=== PATIENT | male | born 1960 | race Caucasian/White ===

== ENCOUNTER 2020-04-03 16:28 | Outpatient (CLI) | payer MEDICARE, OTHER, SELFPAY ==
[2020-04-03 17:21] LABS: Basophils Absolute Auto 0.1 K/mm3 (0.0-0.1); Basophils Percent Auto 0.7 % (0.2-1.2); Eosinophils Absolute Auto 0.1 K/mm3 (0-0.3); Eosinophils Percent Auto 1.1 % (0-4.4); Hemoglobin 15.8 g/dL (14.0-18.0); Immature Granulocyte Absolute 0.02 K/mm3 (0.00-0.031); Immature Granulocyte Percent A 0.3 % (0-0.5); Lymphocytes Absolute Auto 1.78 K/mm3 (0.9-3.2); Lymphocytes Percent Auto 24.1 % (18.3-44.2); Mean Corpuscular HGB Conc 33.6 g/dl (32-36); Mean Corpuscular Hemoglobin 29.3 pg (26-34); Mean Corpuscular Volume 87.2 fl (80-100); Mean Platelet Volume 10.2 fl (7.4-10.4); Monocytes Absolute Auto 0.6 K/mm3 (0.1-0.6); Monocytes Percent Auto 7.4 % (2.6-8.5); Neutrophils Absolute Auto 4.9 K/mm3 (1.3-6.7); Neutrophils Percent Auto 66.4 % (45.5-73.1); Platelet Count Result 258 k/mm3 (150-375); Red Blood Count 5.39 M/mm3 (4.6-6.20); White Blood Count 7.4 K/mm3 (4.5-10.0)
[2020-04-03 17:56] LABS: Hemoglobin A1C 7.2 % (<5.7)
[2020-04-07 04:50] LABS: Homocysteine 11.4 umol/L (<11.4)
[2020-04-07 13:23] LABS: Testosterone Total 126 ng/dL (250-1100)
[2020-04-09 01:40] LABS: Vitamin D 1,25 (OH)2 Total 29 pg/mL (18-72); Vitamin D2 1,25 (OH)2 16 pg/mL; Vitamin D3 1,25 (OH)2 13 pg/mL
== END 2020-04-03 16:29 | disposition home or self-care (01) ==
PROVIDERS: PCP Internal Medicine; Visit Provider Internal Medicine
DX: E55.9 Vitamin D deficiency, unspecified (principal); I10 Essential (primary) hypertension; E11.9 Type 2 diabetes mellitus without complications; E29.1 Testicular hypofunction; R79.89 Other specified abnormal findings of blood chemistry; M10.9 Gout, unspecified; Z79.899 Other long term (current) drug therapy
CPT/HCPCS: 36415; 82652; 83036; 83090; 84403; 85025

== ENCOUNTER 2020-09-05 16:48 | Outpatient (CLI) | payer MEDICARE, OTHER, SELFPAY ==
[2020-09-05 17:40] LABS: Basophils Absolute Auto 0.1 K/mm3 (0.0-0.1); Basophils Percent Auto 0.9 % (0.2-1.2); Eosinophils Absolute Auto 0.1 K/mm3 (0-0.3); Eosinophils Percent Auto 1.2 % (0-4.4); Hematocrit 48.4 % (42.0-52.0); Hemoglobin 16.1 g/dL (14.0-18.0); Immature Granulocyte Absolute 0.03 K/mm3 (0.00-0.031); Immature Granulocyte Percent A 0.3 % (0-0.5); Lymphocytes Absolute Auto 1.71 K/mm3 (0.9-3.2); Mean Corpuscular HGB Conc 33.3 g/dl (32-36); Mean Corpuscular Hemoglobin 28.6 pg (26-34); Mean Platelet Volume 10.5 fl (7.4-10.4); Monocytes Absolute Auto 0.6 K/mm3 (0.1-0.6); Neutrophils Absolute Auto 6.5 K/mm3 (1.3-6.7); Neutrophils Percent Auto 71.6 % (45.5-73.1); Platelet Count Result 259 k/mm3 (150-375); Red Blood Count 5.63 M/mm3 (4.6-6.20); Red Cell Distribution Width 14.7 % (11.5-14.5)
[2020-09-05 17:51] LABS: Alanine Aminotransferase 65 U/L (4-50); Albumin Level 4.5 g/dL (3.5-5.1); Alkaline Phosphatase 76 U/L (38-126); Anion Gap 9 mmol/L (8-16); Aspartate Amino Transferase 49 U/L (17-59); Blood Urea Nitrogen 14 mg/dL (9-20); Calcium 9.7 mg/dL (8.4-10.2); Carbon Dioxide 28 mmol/L (22-30); Chloride 103 mmol/L (98-107); Cholesterol 139 mg/dL (0-200); Estimated Glomerular Filt Rate > 60; Glucose 111 mg/dL (75-110); HDL Direct 35 mg/dL; Potassium 4.3 mmol/L (3.4-5.0); Sodium 140 mmol/L (137-145); Triglycerides 215 mg/dL (<150)
[2020-09-05 18:02] LABS: LDL Cholesterol Direct 58 mg/dL
[2020-09-05 18:08] LABS: Creatinine Urine 51.6 mg/dL
[2020-09-05 18:11] LABS: Hemoglobin A1C 5.7 % (<5.7)
[2020-09-05 18:13] LABS: MALB Creatinine Ratio 73.4 mg/g (0-30); Microalbumin Urine Random 37.9 mg/L (0-16.7)
[2020-09-11 10:44] LABS: Vitamin D 1,25 (OH)2 Total 15 pg/mL (18-72); Vitamin D2 1,25 (OH)2 <8 pg/mL; Vitamin D3 1,25 (OH)2 15 pg/mL
== END 2020-09-05 16:49 | disposition home or self-care (01) ==
LOC: ANHLAB 16:51
PROVIDERS: PCP Internal Medicine; Visit Provider Internal Medicine
DX: E11.9 Type 2 diabetes mellitus without complications (principal); I10 Essential (primary) hypertension; Z12.5 Encounter for screening for malignant neoplasm of prostate; E55.9 Vitamin D deficiency, unspecified; R79.89 Other specified abnormal findings of blood chemistry; E78.2 Mixed hyperlipidemia
CPT/HCPCS: 36415; 80053; 80061; 82043; 82652; 83036; 83090; 84153; 85025; G0103

== ENCOUNTER 2020-12-27 16:50 | Inpatient (IN) | payer MEDICARE, OTHER, SELFPAY ==
[2020-12-27] VITALS (20 sets, daily range): BP systolic 135–176; BP diastolic 72–114; PULSE 69–85; RESP 15–21; TEMP 36–36.1; O2SAT 95–99; BMI 36.4
--- NOTE | ~2020-12-27 | XR_ITS ---
EXAMINATION: XR chest 2V 12/27/2020 17:28 INDICATION: Midsternal left-sided chest pain. Shortness of breath. PROCEDURE: 2 view chest COMPARISON: 11/11/2017 FINDINGS: The lungs are clear. Mild elevation of the left diaphragm. The cardiomediastinal silhouette is within normal limits. There are no pleural effusions. There is no pneumothorax suspected. IMPRESSION: 1: NO ACUTE CARDIOPULMONARY DISEASE. Reviewed, dictated and finalized at location A. O EFFECTS EDITOR
--- NOTE | 2020-12-27 17:02 | ECG_ITS ---
Measurements Intervals [place] Rate: 74 P: 44 [place]: 196 QRS: -6 QRSD: 148 T: 137 QT: 420 QTc: 468 Interpretive Statements SINUS RHYTHM LEFT BUNDLE BRANCH BLOCK ABNORMAL ECG Electronically Signed On 12-27-2020 17:06:34 EXHAUST AND MUFFLER FITTER by Andreas Meyer D.O.
[2020-12-27 17:17] LABS: Basophils Absolute Auto 0.1 K/mm3 (0.0-0.1); Basophils Percent Auto 0.8 % (0.2-1.2); Eosinophils Absolute Auto 0.2 K/mm3 (0-0.3); Eosinophils Percent Auto 2.2 % (0-4.4); Hematocrit 46.9 % (42.0-52.0); Hemoglobin 15.5 g/dL (14.0-18.0); Immature Granulocyte Absolute 0.02 K/mm3 (0.00-0.031); Immature Granulocyte Percent A 0.3 % (0-0.5); Lymphocytes Absolute Auto 2.35 K/mm3 (0.9-3.2); Lymphocytes Percent Auto 30.2 % (18.3-44.2); Mean Corpuscular Hemoglobin 29.8 pg (26-34); Mean Platelet Volume 10.3 fl (7.4-10.4); Monocytes Absolute Auto 0.7 K/mm3 (0.1-0.6); Neutrophils Absolute Auto 4.5 K/mm3 (1.3-6.7); Neutrophils Percent Auto 57.5 % (45.5-73.1); Platelet Count Result 255 k/mm3 (150-375); Red Blood Count 5.21 M/mm3 (4.6-6.20); Red Cell Distribution Width 13.6 % (11.5-14.5); White Blood Count 7.8 K/mm3 (4.5-10.0)
[2020-12-27 17:26] LABS: Prothrombin Time 13.3 Seconds (11.1-14.7)
[2020-12-27 17:29] LABS: Anion Gap 5 mmol/L (8-16); Blood Urea Nitrogen 12 mg/dL (9-20); Calcium 8.7 mg/dL (8.4-10.2); Carbon Dioxide 31 mmol/L (22-30); Chloride 106 mmol/L (98-107); Estimated CRCL calculation 105 ml/min; Estimated Glomerular Filt Rate > 60; Glucose 90 mg/dL (75-110); Potassium 4.3 mmol/L (3.4-5.0); Sodium 142 mmol/L (137-145)
[2020-12-27] MEDS: ENOXAPARIN 120 MG/0.8 ML SYRINGE SUB-Q (17:31)
[2020-12-27 17:41] LABS: Troponin I < 0.012 ng/mL (0.000-0.034)
[2020-12-27] MEDS: NITROGLYCERIN OINTMENT 1 INCH DOSE TRANSDERM (18:47)
--- NOTE | 2020-12-27 18:55 | ED.CHESTPAIN ---
HPI - Chest Pain General Chief Complaint: Chest Pain Stated Complaint: chest pain Time Seen by Provider: 12/27/20 16:52 Source: patient Mode of arrival: ambulatory Limitations: no limitations History of Present Illness HPI narrative: 60-year-old male History of hypertension hypercholesterolemia and diabetes He was at cardiology office today as a new patient and mentioned that he had been having significant episodes of chest tightness the last 2 nights and in fact was having chest tightness while he was in the office with some radiation into his neck and jaw His EKG was done and showed a left bundle branch block which he was known to have previously along with reduced 45% ejection fraction Because of his active symptoms and high risk cohort he was referred to the ER for evaluation and admission with a plan that if his initial ER evaluation was okay he would be admitted and electively cathed soon complaint: chest heaviness Related Data Home Medications Medication Instructions Recorded Confirmed aspirin 81 mg tablet,delayed 81 mg PO DAILY 09/07/19 09/06/20 release cyanocobalamin (vitamin B-12) 1,000 mcg PO DAILY 09/07/19 09/06/20 1,000 mcg tablet cholecalciferol (vitamin D3) 25 1,000 unit PO DAILY 09/21/19 09/06/20 mcg (1,000 unit) capsule omega-3 fatty acids 1,000 mg 2,000 mg PO BID cap 09/09/20 capsule Allergies Allergy/AdvReac Type Severity Reaction Status Date / Time inositol Allergy Unknown Unknown Verified 12/27/20 17:33 niacin Allergy Unknown Unknown Verified 12/27/20 17:33 niacinamide Allergy Unknown Unknown Verified 12/27/20 17:33 Review of Systems Review of Systems: All systems reviewed & are unremarkable except as noted in HPI and below Constitutional: Constitutional: Denies chills, Denies fatigue, Denies fever(s), Denies headache(s) and Denies weakness Eyes: Eyes: Reports no additional eye complaints and Denies change in vision ENT: Denies headache(s), Denies epistaxis, Denies nasal congestion, Reports neck pain and Denies sore throat Cardiovascular: Cardiovascular: Reports chest pain, Reports chest pain at rest, Denies leg edema, Denies palpitations and Denies dyspnea Respiratory: Respiratory: Denies cough and Denies dyspnea Gastrointestinal: Gastrointestinal: Denies abdominal pain, Denies diarrhea, Denies nausea and Denies vomiting Genitourinary: Genitourinary: Denies hematuria, Denies dysuria and Denies urinary frequency Musculoskeletal: Musculoskeletal: Reports back pain (Chronic, status post several back operations), Denies deformity, Denies arthralgias, Denies joint swelling, Denies muscle weakness and Denies numbness Integumentary/Breasts: Skin/Breast: Denies rash and Denies wounds Neurologic: Denies headache(s), Denies focal weakness, Denies numbness and Denies weakness Psychiatric: Psychiatric: Reports no additional psychiatric complaints Endocrine: Endocrine: Denies fatigue and Denies palpitations Hematologic/Lymphatic: Hematologic/Lymphatic: Denies easy bleeding and Denies easy bruising Allergic/Immunologic: Allergic/Immunologic: Denies wheezing PMFSH Past Medical History Medical History (Updated 12/27/20 @ 19:09 by Jose Dos Santos MD) Abnormal EKG Abnormal finding of blood chemistry, unspecified BMI 38.0-38.9,adult BMI 39.0-39.9,adult Body mass index (BMI) 40.0-44.9, adult Change in mole Elevated homocysteine Encounter for Medicare annual wellness exam Encounter for routine adult health examination without abnormal findings Encounter for special screening examination for neoplasm of prostate Gout (~08/2019) Hearing loss Hypersomnolence Hypogonadism Insomnia Left foot pain Multiple acquired skin tags On terminal manager drug therapy Right foot pain Skin lesion Trigger finger of both hands Vitamin D deficiency Family History Family History Father Family history of glaucoma Family history of diabetes elizabeth
--- NOTE | 2020-12-27 20:31 | PM.IMHP ---
H&P: HPI History of Present Illness Date/Time: 12/27/20 20:31 Chief Complaint: Left sided chest pain Narrative: This is a pleasant 60 year old obese Diabetic male with known history of hyperlipidemia who presented to the hospital from his PCPs office secondary to ongoing intermittent left sided chest heaviness for months which has seemed to worsen this past week. He complains of having more frequent chest heaviness that lasts sometimes for hours. The patient denies any associated symptoms of nausea, vomiting, shortness of breath, or dizziness with his chest pain. His chest pain is described as occurring mostly at rest. He states that his Bathroom Tiling Professional recommended he just come into the ER as he will need an elective Cath soon. He denies any other sympstoms such as fever, chills, cough, palpitations, abdominal pain, dysuria, hematuria, diarrhea or rectal bleeding. His EKG showed a LBBB and his initial troponin is negative. ER provdier has consulted Cardiology, Dr. Philip. No other complaints. Review of Systems Review of Systems: All systems reviewed & are unremarkable except as noted in HPI and below PMFSH Past Medical History Medical History Abnormal EKG Abnormal finding of blood chemistry, unspecified BMI 38.0-38.9,adult BMI 39.0-39.9,adult Body mass index (BMI) 40.0-44.9, adult Change in mole Elevated homocysteine Encounter for Medicare annual wellness exam Encounter for routine adult health examination without abnormal findings Encounter for special screening examination for neoplasm of prostate Gout (~08/2019) Hearing loss Hypersomnolence Hypogonadism Insomnia Left foot pain Multiple acquired skin tags On usp drug therapy Right foot pain Skin lesion Trigger finger of both hands Vitamin D deficiency Family History Family History Father Family history of glaucoma Family history of diabetes mellitus in first degree relative Diabetes mellitus Mother Family history of diabetes mellitus in first degree relative Family history of heart disease in male family member before age 55 Diabetes mellitus Family history of cardiovascular disease Other Family history of coronary artery disease Family history of diabetes mellitus Social History Social History Smoking status: Never smoker Alcohol intake: current Meds Home Medications and Allergies Home Medications Medication Instructions Recorded Confirmed Type aspirin 81 mg tablet,delayed 81 mg PO DAILY 09/07/19 09/06/20 History release cyanocobalamin (vitamin B-12) 1,000 mcg PO DAILY 09/07/19 09/06/20 History 1,000 mcg tablet cholecalciferol (vitamin D3) 25 1,000 unit PO DAILY 09/21/19 09/06/20 History mcg (1,000 unit) capsule atorvastatin 40 mg tablet 40 mg PO DAILY #90 tablet 09/06/20 Rx folic acid 1 mg tablet 1 mg PO DAILY #90 tablet 09/06/20 Rx losartan 100 mg tablet 100 mg PO DAILY #90 tablet 09/06/20 Rx meloxicam 15 mg tablet 15 mg PO DAILY #90 tablet 09/06/20 Rx sumatriptan succinate 50 mg tablet See Rx Instructions PO .COMPLEX #9 09/06/20 Rx tablet omega-3 fatty acids 1,000 mg 2,000 mg PO BID cap 09/09/20 History capsule metformin 1,000 mg tablet See Rx Instructions .ROUTE 11/05/20 Rx .COMPLEX #180 tablet sildenafil 100 mg tablet See Rx Instructions .ROUTE 11/05/20 Rx .COMPLEX #8 tablet semaglutide 7 mg tablet See Rx Instructions .ROUTE 11/11/20 Rx .COMPLEX #90 tablet testosterone undecanoate 237 mg 237 mg PO BID #60 cap 11/11/20 Rx capsule tizanidine 4 mg tablet See Rx Instructions .ROUTE 12/11/20 Rx .COMPLEX #90 tablet zolpidem 10 mg tablet 10 mg PO .COMPLEX PRN #30 tablet NS 12/11/20 Rx hydrocodone 10 mg-acetaminophen 1 tablet PO Q6H PRN #120 tablet 12/12/20 Rx 325 mg tablet tapentadol 100 mg tablet 100 mg PO .COMPLEX P
--- NOTE | 2020-12-27 20:40 | ECG_ITS ---
Measurements Intervals [place] Rate: 72 P: 44 [place]: 215 QRS: 1 QRSD: 150 T: 143 QT: 435 QTc: 477 Interpretive Statements SINUS RHYTHM WITH FIRST DEGREE AV BLOCK LEFT BUNDLE BRANCH BLOCK ABNORMAL ECG Electronically Signed On 12-28-2020 7:18:55 PUBLICITY EXPERT by Anderas Meyer D.O.
[2020-12-27 20:54] LABS: Troponin I < 0.012 ng/mL (0.000-0.034)
--- NOTE | 2020-12-27 22:03 | ADMGEN ---
This patient, Edward Miller, was admitted to IMU Room 201-01 on 12/27/20 at 2143. Patient/family oriented to hospital policies and general routines including ID bracelet, bed and alarms, visiting hours, pain management, procedures, bathroom and other care routines, personal items, smoking policy, room service/diet, and visiting hours. Information on how to activate the Rapid Response Team has been discussed. Patient/Family are encouraged to report perceived risks to care and to ask questions if they do not understand what they are told or what they should do.
[2020-12-27] MEDS: LACTATED RINGERS 1,000 ML 80 ML IV CONT (23:32)
[2020-12-28] VITALS (16 sets, daily range): BP systolic 106–153; BP diastolic 49–90; PULSE 57–83; RESP 12–18; TEMP 35.5–36.6; O2SAT 93–100
[2020-12-28 00:17] LABS: Troponin I < 0.012 ng/mL (0.000-0.034)
[2020-12-28 01:04] LABS: Glucose Point of Care 83 (65-105)
[2020-12-28] MEDS: ATORVASTATIN 40 MG TABLET PO ×2 (02:09→21:59)
[2020-12-28] MEDS: FOLIC ACID 1 MG TABLET PO ×2 (02:10→21:59)
[2020-12-28] MEDS: CHOLECALCIFEROL 1,000 UNITS TABLET 1000 UNITS PO ×2 (02:10→21:59)
[2020-12-28] MEDS: TIZANIDINE HCL 4 MG TABLET PO ×3 (02:11→22:01)
[2020-12-28] MEDS: ZOLPIDEM TARTRATE (*CRX) 5 MG TABLET 10 MG PO ×2 (02:11→22:01)
[2020-12-28] MEDS: TAPENTADOL HCL (*CRX) 50 MG TABLET 100 MG PO ×2 (03:14→22:00)
[2020-12-28 05:28] LABS: Anion Gap 3 mmol/L (8-16); Blood Urea Nitrogen 14 mg/dL (9-20); Calcium 8.3 mg/dL (8.4-10.2); Carbon Dioxide 31 mmol/L (22-30); Chloride 107 mmol/L (98-107); Estimated CRCL calculation 103 ml/min; Estimated Glomerular Filt Rate > 60; Glucose 88 mg/dL (75-110); Magnesium 1.7 mg/dL (1.6-2.3); Potassium 3.7 mmol/L (3.4-5.0); Sodium 141 mmol/L (137-145)
[2020-12-28 06:15] LABS: Glucose Point of Care 90 (65-105)
[2020-12-28] MEDS: ENOXAPARIN 60 MG/0.6 ML SYRINGE 45 MG SUB-Q ×2 (06:21→17:38)
[2020-12-28] MEDS: ENOXAPARIN 80 MG/0.8 ML SYRINGE SUB-Q ×2 (06:21→17:38)
[2020-12-28] MEDS: HYDROcodone/acetaminophen (*CRX) 10-325 MG TABLET 1 TAB PO ×3 (06:47→19:18)
--- NOTE | 2020-12-28 08:46 | PM.IMPN ---
Progress Note: A&P Assessment and Plan (1) Chest pain: Qualifiers: Chest pain type: unspecified Qualified Code(s): R07.9 - Chest pain, unspecified Code(s): R07.9 - Chest pain, unspecified Status: Acute Assessment and Plan: suspected cardiac. cardiology consultation awaited. on aspirin, statin, anticoagulation with lovenox therapeutic dosign. recently had ECHO 12/19/2020: mild concentraice LVH, left ventrice cavity upper limits of normal. mild globa LVSD, pradoximal septal motion conssitent with IVCD or BBB, impaired diastolic relaxation grade I. EF 45%. anteroseptum semgent of LV hypokinesis (2) Uncontrolled hypertension: Code(s): I10 - Essential (primary) hypertension Status: Acute Assessment and Plan: blood pressure much better. on losartan. (3) Hyperlipidemia: Qualifiers: Hyperlipidemia type: unspecified Qualified Code(s): E78.5 - Hyperlipidemia, unspecified Code(s): E78.5 - Hyperlipidemia, unspecified Status: Chronic Assessment and Plan: Continue omega 3 fatty acids and atorvastatin. rehcek lipid profile in am. (4) Type 2 diabetes mellitus without complication: Qualifiers: Diabetes mellitus terminal computer operator insulin use: without terminal computer operator use Qualified Code(s): E11.9 - Type 2 diabetes mellitus without complications Code(s): E11.9 - Type 2 diabetes mellitus without complications Status: Chronic Assessment and Plan: Accuchecks, SSI Coverage, hypoglycemic protocol. (5) Angina pectoris: Code(s): I20.9 - Angina pectoris, unspecified Status: Acute Assessment and Plan: cardiology consult awaited (6) Cardiomyopathy: Code(s): I42.9 - Cardiomyopathy, unspecified Status: Acute Assessment and Plan: EF 45% with Left apical hypokinesis in ECHO. await ischemic evaluation. (7) Left bundle branch block: Code(s): I44.7 - Left bundle-branch block, unspecified Status: Acute Assessment and Plan: chronicity unknown; newly diagnosed Subjective Date/time seen: 12/28/20 08:46 Interval history: no overnight events, he reports the chest pain has eased up much today. he was haing left parasternal chest tightness on and off for several months. no nausea, vomitg, diaphoreiss Review of Systems Constitutional: Constitutional: Denies fatigue, Denies lethargy and Denies weakness Eyes: Eyes: Denies blurry vision and Denies photophobia ENT: Denies epistaxis and Denies nasal congestion Cardiovascular: Cardiovascular: Reports chest pain, Denies diaphoresis, Denies leg edema, Denies lightheadedness and Denies palpitations Respiratory: Respiratory: Denies cough, Denies dyspnea and Denies dyspnea on exertion Gastrointestinal: Gastrointestinal: Denies abdominal pain, Denies constipation, Denies diarrhea, Denies nausea and Denies vomiting Genitourinary: Genitourinary: Denies urinary hesitancy and Denies urinary urgency Musculoskeletal: Musculoskeletal: Denies back pain and Denies neck pain Integumentary/Breasts: Skin/Breast: Denies pruritus and Denies rash Neurologic: Denies Abnormal speech present and Denies confusion Psychiatric: Psychiatric: Denies anxiety, Denies behavioral changes and Denies confusion Exam Const: General: cooperative, alert, awake and ill appearing chronically Nutritional Appearance: well nourished Orientation/consciousness: patient oriented x3 HENMT: Head: normal to inspection General nose exam: Normal external nose present Face and sinus: normal facial exam Mouth: Yes Normal oral and palatal mucosa present and Yes oropharynx normal Eyes: Pupils: Equal, round and reactive pupils present EOM: EOMs intact bilaterally Neck: Neck: supple and no JVD Thyroid: thyroid normal Lymphatic: lymphadenopathy not noted Resp: Effort & Inspection: normal respiratory effort Auscultation: clear to auscultation bilaterally Cardio: Rate: regular rate Rhythm: regul
[2020-12-28] MEDS: ASPIRIN 81 MG CHEWABLE TABLET PO (08:49)
[2020-12-28] MEDS: CYANOCOBALAMIN 1,000 MCG TABLET 1000 MCG PO (08:50)
[2020-12-28] MEDS: OMEGA 3 POLYUNSAT FATTY ACIDS 1 GM CAP 2 GM PO ×2 (08:52→17:36)
[2020-12-28] MEDS: LOSARTAN POTASSIUM 100 MG TABLET PO (08:53)
[2020-12-28 13:04] LABS: Glucose Point of Care 94 (65-105)
--- NOTE | 2020-12-28 13:46 | PM.CNCAR ---
Assessment and Plan Assessment and plan (1) Unstable angina: Code(s): I20.0 - Unstable angina Status: Acute Assessment and Plan: Serial troponins negative thus far. Chest pain persists although much improved with nitrate therapy. Add beta-lucio. Continue aspirin, statin. Provided patient remains hemodynamically stable with controlled symptoms plan for coronary angiography Wednesday morning or sooner on urgent basis as warranted. Will add metoprolol 25 mg twice daily and transition to Toprol XL prior to discharge. -Coronary angiography risks, benefits, alternatives explained once again in detail. Patient verbalized understanding. Bleeding, infection, with coronary angiography previously discussed. Recommendation to follow with regards to percutaneous intervention/stent implantation versus bypass surgery. Discussed options of severe obstructive CAD versus nonischemic etiologies which would be clarified with coronary angiogram. Questions answered to his satisfaction. Hold enoxaparin on Wednesday. -Patient may eat today. -Continue telemetry (2) Left bundle branch block: Code(s): I44.7 - Left bundle-branch block, unspecified Status: Acute Assessment and Plan: Recent diagnosis in setting of a LV dysfunction, abnormal stress test and unstable anginal symptoms. (3) Cardiomyopathy: Code(s): I42.9 - Cardiomyopathy, unspecified Status: Acute Assessment and Plan: EF 40-45%, compensated new diagnosis. (4) Essential (primary) hypertension: Code(s): I10 - Essential (primary) hypertension Status: Chronic Assessment and Plan: Stable, elevated. Continue supportive medical therapy with losartan, beta-lucio. (5) Type 2 diabetes mellitus without complication: Qualifiers: Diabetes mellitus intermodal customer service insulin use: without longterm use Qualified Code(s): E11.9 - Type 2 diabetes mellitus without complications Code(s): E11.9 - Type 2 diabetes mellitus without complications Status: Chronic Assessment and Plan: Per hospitalist service (6) Mixed hyperlipidemia: Code(s): E78.2 - Mixed hyperlipidemia Status: Chronic Assessment and Plan: Statin therapy. (7) Abnormal stress test: Code(s): R94.39 - Abnormal result of other cardiovascular function study Status: Acute Assessment and Plan: As above, fixed anteroseptal defect, however, with unstable anginal symptoms at rest, new LV dysfunction, LBBB History of Present Illness History of Present Illness Consult date/time: Date of service: 12/28/20 13:46 Cardiology consultation at the request of Dr. Doan for opinion regarding unstable angina. Requesting physician: Flynn Doan MD Consult reason: chest pain (Unstable angina, abnormal stress test, cardiomyopathy) and Other Reason For Visit: angina Narrative: Patient is a very pleasant 60-year-old male with complaints of several months progressive exertional dyspnea, chest pain, fatigue particular the past few weeks. LBBB initially discovered approximately 1 year ago and he did not follow up with recommended stress test and echocardiogram until recently. Symptoms have progressed in the interval an echocardiogram revealed [id number] LV dysfunction EF 40-45% with anteroseptal wall motion abnormality. Lexiscan nuclear stress test revealed moderate size fixed anteroseptal defect with EF 42%, LV enlargement. Given rest anginal symptoms which developed a few days prior to to consultation as an outpatient on Wednesday worse with any activity given his high risk features he was advised to present to the ER for admission. Serial troponins negative thus far. Patient hemodynamically stable. Chest pain much improved with nitrate therapy but has not completely resolved. Patient notes his primary concern is his chronic lower back pain which has flared at this time. Denies shortness of breath, palpitations. Review of Syst
[2020-12-28 17:10] LABS: Glucose Point of Care 151 (65-105)
[2020-12-28 20:33] LABS: Glucose Point of Care 124 (65-105)
[2020-12-28] MEDS: METOPROLOL TARTRATE 25 MG TABLET PO (21:59)
[2020-12-29] VITALS (20 sets, daily range): BP systolic 140–167; BP diastolic 80–98; PULSE 57–84; RESP 16–22; TEMP 35.9–36.6; O2SAT 96–100
--- NOTE | 2020-12-29 03:14 | PC.NURSE ---
Daylight Savings Time For Daylight Savings Time Ending in the Fall - Clocks are moved back. For Daylight Savings Time Beginning in the Spring - Clocks are moved ahead. For [facility], the time of change occurs at 0200 hrs. Time is taken from the service observer. This entry on the patient's chart recognizes the change in time reflected during documentation. Example: 2 entries for vital signs may be charted for 0200 hrs.
[2020-12-29] MEDS: HYDROcodone/acetaminophen (*CRX) 10-325 MG TABLET 1 TAB PO ×2 (06:19→19:23)
[2020-12-29] MEDS: TIZANIDINE HCL 4 MG TABLET PO ×2 (06:19→19:24)
[2020-12-29] MEDS: ENOXAPARIN 80 MG/0.8 ML SYRINGE SUB-Q (06:20)
[2020-12-29] MEDS: ENOXAPARIN 60 MG/0.6 ML SYRINGE 45 MG SUB-Q (06:20)
[2020-12-29 08:05] LABS: Glucose Point of Care 120 (65-105)
[2020-12-29] MEDS: OMEGA 3 POLYUNSAT FATTY ACIDS 1 GM CAP 2 GM PO ×2 (08:29→17:42)
[2020-12-29] MEDS: ASPIRIN 81 MG CHEWABLE TABLET PO (08:30)
[2020-12-29] MEDS: LOSARTAN POTASSIUM 100 MG TABLET PO (08:30)
[2020-12-29] MEDS: CYANOCOBALAMIN 1,000 MCG TABLET 1000 MCG PO (08:30)
[2020-12-29] MEDS: METOPROLOL TARTRATE 25 MG TABLET PO ×2 (08:31→21:01)
[2020-12-29 12:30] LABS: Glucose Point of Care 159 (65-105)
--- NOTE | 2020-12-29 13:38 | PM.PNCARD ---
Progress Note: A&P Assessment and Plan (1) Unstable angina: Code(s): I20.0 - Unstable angina Status: Acute Assessment and Plan: -Serial Trop I negative. -Continue Metoprolol 25 mg BID, transition to Toprol XL in AM. -Discussed coronary angiogram once again. Recommendations to follow with regards to percutaneous intervention/stent implantation versus bypass surgery. Discussed options of severe obstructive CAD versus nonischemic etiologies once again. Discussed particular details with regards to percutaneous intervention / stent implantation if required and/or referral to cardiothoracic surgery of necessary on an outpatient basis. I discussed where he would like to be referred. He is open to [facility], more familiar with [facility] -Discontinue enoxaparin full dose. Change to DVT dosing. -NPO after midnight, actually 1:00 a.m.. -Continue telemetry -Apnea link overnight tonight Suspicion for [facility]CHANA. -Patient in full agreement with plan of care. All questions once again answered to his satisfaction. (2) Left bundle branch block: Code(s): I44.7 - Left bundle-branch block, unspecified Status: Acute Assessment and Plan: Recent diagnosis in setting of a LV dysfunction, abnormal stress test and unstable anginal symptoms. (3) Cardiomyopathy: Code(s): I42.9 - Cardiomyopathy, unspecified Status: Acute Assessment and Plan: EF 40-45%, compensated new diagnosis. (4) Essential (primary) hypertension: Code(s): I10 - Essential (primary) hypertension Status: Chronic Assessment and Plan: Stable, elevated. Continue supportive medical therapy with losartan, beta-lucio. (5) Type 2 diabetes mellitus without complication: Qualifiers: Diabetes mellitus prison insulin use: without prison use Qualified Code(s): E11.9 - Type 2 diabetes mellitus without complications Code(s): E11.9 - Type 2 diabetes mellitus without complications Status: Chronic Assessment and Plan: Per hospitalist service (6) Mixed hyperlipidemia: Code(s): E78.2 - Mixed hyperlipidemia Status: Chronic Assessment and Plan: Statin therapy. (7) Abnormal stress test: Code(s): R94.39 - Abnormal result of other cardiovascular function study Status: Acute Assessment and Plan: As above, fixed anteroseptal defect, however, with unstable anginal symptoms at rest, new LV dysfunction, LBBB Subjective Date/time seen: Date of service:12/29/20 13:38 Follow-up for unstable angina, abnormal stress test, cardiomyopathy, left bundle-branch block patient continues to have intermittent chest discomfort a little bit worse last night improved this morning mild and quite tolerable. Better than at admission. Denies shortness of breath at rest. No palpitations. No fevers or chills. Ongoing chronic back pain but improved. Review of Systems Review of Systems: All systems reviewed & are unremarkable except as noted in HPI and below Constitutional: Constitutional: Reports as per HPI, Reports no additional constitutional complaints, Reports excessive sweating and Reports fatigue Eyes: Eyes: Reports as per HPI and Reports no additional eye complaints ENT: Reports system reviewed and no additional complaints, except as documented and Reports as per HPI Cardiovascular: Cardiovascular: Reports as per HPI, Reports no additional cardiovascular complaints, Reports chest pain, Denies leg edema, Denies palpitations, Reports dyspnea and Reports dyspnea on exertion Respiratory: Respiratory: Reports as per HPI, Reports no additional respiratory complaints, Reports dyspnea and Reports dyspnea on exertion Gastrointestinal: Gastrointestinal: Reports as per HPI, Reports no additional gastrointestinal complaints, Denies abdominal pain, Denies melena and Denies hematochezia Genitourinary: Genitourinary: Reports no additional male genitourinary comp
--- NOTE | 2020-12-29 15:56 | PM.IMPN ---
Progress Note: A&P Assessment and Plan (1) Abnormal stress test: Code(s): R94.39 - Abnormal result of other cardiovascular function study Status: Acute Assessment and Plan: Will go for catheterization in am. Supportive care Appreciate Cardiology note (2) Unstable angina: Code(s): I20.0 - Unstable angina Status: Acute Assessment and Plan: Continue Nitrates as needed. Supportive care Pain on/off but mostly well controlled. Trops x3 wnl (3) Left bundle branch block: Code(s): I44.7 - Left bundle-branch block, unspecified Status: Acute Assessment and Plan: Apparently a new finding On Telemetry Continue to monitor. (4) Cardiomyopathy: Code(s): I42.9 - Cardiomyopathy, unspecified Status: Acute Assessment and Plan: L cath tomorrow in am On Losartan, statin, beta blockade (5) Uncontrolled hypertension: Code(s): I10 - Essential (primary) hypertension Status: Acute Assessment and Plan: Continue to monitor Continue home meds (6) Type 2 diabetes mellitus without complication: Qualifiers: Diabetes mellitus keno terminal operator insulin use: without keno terminal operator use Qualified Code(s): E11.9 - Type 2 diabetes mellitus without complications Code(s): E11.9 - Type 2 diabetes mellitus without complications Status: Chronic Assessment and Plan: Holding Metformin ISS as needed On Lantus at bed time Meals covered as well. Subjective Date/time seen: 12/29/20 15:56 Patient states that he is feeling well. Review of Systems Review of Systems: Narrative: No new issues overnight. Constitutional: Comments: no fevers, no rigors, no chills. Cardiovascular: Comments: some chest pain. Respiratory: Comments: no sob, no cough, no sputum production. Gastrointestinal: Comments: no n/v/abdominal pain. Musculoskeletal: Comments: no joint pain. Integumentary/Breasts: Comments: no rashes. Neurologic: Comments: no sensory motor deficit. Exam Narrative: Exam Narrative: Sitting in bed Const: General: comfortable, no acute distress, alert, awake and Physically active Nutritional Appearance: overweight Orientation/consciousness: patient oriented x3 HENMT: Head: normal to inspection and normocephalic Ears: hearing grossly normal bilaterally General nose exam: Normal external nose present Face and sinus: normal facial exam Eyes: General: appearance normal, both eyes and all related structures Pupils: Equal, round and reactive pupils present EOM: EOMs intact bilaterally Neck: Neck: no lymphadenopathy, supple and no JVD Resp: Effort & Inspection: able to speak in complete sentences Auscultation: clear to auscultation bilaterally Cardio: Jugular venous distension: no JVD Rate: regular rate Rhythm: regular rhythm Heart sounds: S1 normal heart sound present and S2 normal heart sound present GI: GI Palp: Yes Soft to palpation and Yes No hepatosplenomegaly present Skin: Rashes: no rashes Neuro: General: patient oriented x3 and CN's II-XI intact bilaterally Cranial nerves: Yes CN's II-XII intact bilaterally, Yes Equal, round and reactive pupils present and Yes Bilaterally intact EOM present Cognition (Neuro): normal cognition Speech: normal speech Gait exam (Neuro): Normal gait present Motor exam (neuro): 5/5 motor strength present throughout Extrem: General: no pedal edema Objective Data Vital Signs Vital Signs: Vital Signs - 24 hr 12/28/20 16:00 12/28/20 18:00 12/28/20 19:39 Temperature 96 F L 97.9 F Pulse Rate 72 70 77 Respiratory Rate 12 16 Blood Pressure 149/81 H 153/87 H Pulse Oximetry 100 93 12/28/20 20:00 12/28/20 21:51 12/28/20 21:59 Temperature Pulse Rate 77 72 69 Respiratory Rate 16 Blood Pressure Pulse Oximetry 93 12/28/20 23:47 12/29/20 00:00 12/29/20 01:26 Temperature 97.5 F L Pulse Rate 73 73 64 Respiratory Rate 16 16 Blood Pressure 149/87 H Pulse Oxim
[2020-12-29 17:02] LABS: Glucose Point of Care 124 (65-105)
[2020-12-29] MEDS: METOPROLOL SUCCINATE EXT REL 25 MG TABCR PO (20:51)
[2020-12-29] MEDS: CHOLECALCIFEROL 1,000 UNITS TABLET 1000 UNITS PO (20:52)
[2020-12-29] MEDS: FOLIC ACID 1 MG TABLET PO (20:52)
[2020-12-29] MEDS: ATORVASTATIN 40 MG TABLET PO (20:52)
[2020-12-29 20:58] LABS: Glucose Point of Care 197 (65-105)
[2020-12-29] MEDS: ZOLPIDEM TARTRATE (*CRX) 5 MG TABLET 10 MG PO (22:33)
[2020-12-29] MEDS: TAPENTADOL HCL (*CRX) 50 MG TABLET 100 MG PO (22:33)
[2020-12-30] VITALS (18 sets, daily range): BP systolic 142–176; BP diastolic 76–98; PULSE 16–80; RESP 11–64; TEMP 35.8–36.5; O2SAT 94–98
[2020-12-30 08:11] LABS: Glucose Point of Care 114 (65-105)
[2020-12-30] MEDS: ASPIRIN 81 MG CHEWABLE TABLET PO (08:32)
[2020-12-30] MEDS: CYANOCOBALAMIN 1,000 MCG TABLET 1000 MCG PO (08:32)
[2020-12-30] MEDS: OMEGA 3 POLYUNSAT FATTY ACIDS 1 GM CAP 2 GM PO (08:32)
[2020-12-30] MEDS: LOSARTAN POTASSIUM 100 MG TABLET PO (08:32)
[2020-12-30] MEDS: HYDROcodone/acetaminophen (*CRX) 10-325 MG TABLET 1 TAB PO ×2 (08:33→15:36)
--- NOTE | 2020-12-30 10:25 | PC.NURSE ---
Patient to cardiac laborer road via bed.
--- NOTE | 2020-12-30 10:54 | WPDMODSED ---
Moderate Sedation Note-Pt Data Patient Data Diagnosis: Cardiomyopathy, unstable angina Present Complaint: chest pain Procedure to be performed/Plan: left heart catheterization with selective left and right coronary angiography with left ventriculography and hemodynamics and possible percutaneous intervention and stent implantation. Allergies Allergy/AdvReac Type Severity Reaction Status Date / Time niacin Allergy Unknown Redness of Verified 12/27/20 22:58 Skin niacinamide Allergy Unknown Redness of Verified 12/27/20 22:58 Skin Home Medications Medication Instructions Recorded Confirmed Type aspirin 81 mg tablet,delayed 81 mg PO BID 09/07/19 12/27/20 History release cyanocobalamin (vitamin B-12) 1,000 mcg PO DAILY 09/07/19 12/27/20 History 1,000 mcg tablet cholecalciferol (vitamin D3) 25 1,000 unit PO HS 09/21/19 12/27/20 History mcg (1,000 unit) capsule losartan 100 mg tablet 100 mg PO DAILY #90 tablet 09/06/20 12/27/20 Rx omega-3 fatty acids 1,000 mg 2,000 mg PO BID cap 09/09/20 12/27/20 History capsule sildenafil 100 mg tablet See Rx Instructions .ROUTE 11/05/20 12/27/20 Rx .COMPLEX #8 tablet hydrocodone 10 mg-acetaminophen 1 tablet PO Q6H PRN #120 tablet 12/12/20 12/27/20 Rx 325 mg tablet Rybelsus 7 mg PO DAILY 12/27/20 12/27/20 History atorvastatin 40 mg PO HS 12/27/20 12/27/20 History folic acid 1 mg PO HS 12/27/20 12/27/20 History meloxicam 15 mg PO DAILY 12/27/20 12/27/20 History metformin 1,000 mg PO BID 12/27/20 12/27/20 History sumatriptan succinate [Imitrex] See Rx Instructions PO .COMPLEX PRN 12/27/20 12/27/20 History tapentadol [Nucynta] 100 mg PO HS PRN 12/27/20 12/27/20 History tizanidine 4 mg PO TID PRN 12/27/20 12/27/20 History zolpidem 10 mg PO HS PRN 12/27/20 12/27/20 History Current Medications: Active Medications Acetaminophen (Acetaminophen 325 Mg Tablet) 650 mg PO Q4H PRN PRN Reason: Mild Pain (1-3) or Fever Hydrocodone Bitart/Acetaminophen (Hydrocodone/Acetaminophen (*Crx) 10-325 Mg Tablet) 1 tab PO Q6H PRN PRN Reason: Pain Rated 4-6 Last Admin: 12/30/20 08:33 Dose: 1 tab Documented by: Aspirin (Aspirin 81 Mg Chewable Tablet) 81 mg PO DAILY@0800 [facility] Last Admin: 12/30/20 08:32 Dose: 81 mg Documented by: Atorvastatin Calcium (Atorvastatin 40 Mg Tablet) 40 mg PO HS [facility] Last Admin: 12/29/20 20:52 Dose: 40 mg Documented by: Cyanocobalamin (Cyanocobalamin 1,000 Mcg Tablet) 1,000 mcg PO DAILY [facility] Last Admin: 12/30/20 08:32 Dose: 1,000 mcg Documented by: Dextrose (Dextrose 50% 25 Gm/50 Ml Syringe) 12.5 gm IV PUSH PRN PRN; Protocol PRN Reason: Hypoglycemia Fish Oil ([place] 3 Polyunsat Fatty Acids 1 Gm Cap) 2 gm PO BID [facility] Last Admin: 12/30/20 08:32 Dose: 2 gm Documented by: Folic Acid (Folic Acid 1 Mg Tablet) 1 mg PO HS [facility] Last Admin: 12/29/20 20:52 Dose: 1 mg Documented by: Glucagon (Glucagon For Inj 1 Mg Vial) 1 mg IM PRN PRN; Protocol PRN Reason: Hypoglycemia Glucose (Glucose Oral Gel 15 Gm Of Glucse In 37.5 Gm Tube) 15 gm PO PRN PRN; Protocol PRN Reason: Hypoglycemia Dextrose (Dextrose 5% 1,000 Ml) 1,000 mls @ 100 mls/hr IVPB PRN PRN; Protocol PRN Reason: Hypoglycemia Insulin Aspart (Insulin Aspart (*Bkc) 100 Units/Ml) 2 - 5 units SUB-Q 0800,1200,1700,2100 [facility]; Protocol Last Admin: 12/30/20 08:26 Dose: Not Given Documented by: Losartan Potassium (Losartan Potassium 100 Mg Tablet) 100 mg PO DAILY [facility] Last Admin: 12/30/20 08:32 Dose: 100 mg Documented by: Metformin HCl (Metformin Hcl 500 Mg Tablet) 1,000 mg PO BIDWM [facility] Last Admin: 12/28/20 08:56 Dose: Not Given Documented by: Metoprolol Succinate (Metoprolol Succinate Ext Rel 25 Mg Tabcr) 25 mg PO QAM [facility] Last Admin: 12/29/20 20:51 Dose: 25 mg Documented by: Nitroglycerin (Nitroglycerin Sl 0.4 Mg Tablet) 0.4 mg SUBLINGUAL Q5MIN PRN PRN Reason: Chest Pain Ondansetron HCl (Ondansetron Inj 4 Mg/2 Ml Vial) 4 mg IV PUSH Q4H PRN PRN Reason: Nausea Tapentadol (Tapen
--- NOTE | 2020-12-30 10:56 | PM.PROC ---
Procedure Note - Detailed Date of procedure: 12/30/20 Pre-op diagnosis: angina cardiomyopathy, unstable angina Post-op diagnosis: same ( cardiomyopathy, nonischemic, myocardial bridging) Procedure performed: left heart catheterization with selective left and right coronary angiography with left ventriculography and hemodynamics Description of procedure: BRIEF HISTORY OF PRESENT ILLNESS: Patient is a very pleasant 60-year-old male with a history of hypertension, diabetes mellitus new diagnosis left bundle-branch block, LV systolic dysfunction EF 40-45% with abnormal stress test suggestive prior infarction with progressive exertional dyspnea, fatigue constant chest pain worse with activity concerning for unstable angina admitted to the hospital for observation, management and refer for coronary angiography for delineation of his coronary anatomy. PROCEDURES PERFORMED: 1. Left heart catheterization 2. Selective left and right coronary angiography 3. Left ventriculography and hemodynamics 4. Moderate/conscious sedation administration 5. Selective right femoral angiography. 6. 6 [place] Angio-Seal vascular closure device deployment in the right common femoral artery. CATHETERS UTILIZED: Left coronary system- 5 [place] JL4 catheter Right coronary system- 5 [place] JR4 catheter Left ventriculography and hemodynamics- 5 [place] angled pigtail catheter PROCEDURE IN DETAIL: After verbal and written informed consent was obtained the patient, risks, benefits, and alternatives explained in detail the patient agreed to proceed with the plan of care as outlined above. The patient was subsequently brought to the cardiac catheterization lab, placed on the cardiac catheterization table, and prepped and draped in the usual sterile fashion. Utilizing approximately 17cc of 1% subcutaneous Lidocaine, the right groin was then locally anesthetized. Utilizing the modified Seldinger technique, a 5 [place] arterial vascular access sheath was inserted in the right common femoral artery easily and without complications. Through this access, coronary angiography was subsequently obtained in multiple standard re-projections. Following this, a 5 [place] angled pigtail catheter was advanced retrograde across aortic valve into the cavity of the left ventricle. Left ventriculography was performed and pullback across aortic valve was subsequently recorded. The vascular access sheath and angiographic catheters were flushed before and after catheter exchanges. At the conclusion of the diagnostic portion of the procedure, all angiographic guidewires and catheters were removed. Selective right femoral artery angiography was performed which revealed the arteriotomy site to be proximal to the bifurcation in the right common femoral artery suitable for 6 [place] Angio-Seal vascular closure device deployment. Subsequently, this was performed without complication. MODERATE SEDATION/ANESTHESIA ADMINISTRATION: Patient reports no prior problems with sedation/anesthesia. Please see pre-sedation noted for physical examination documentation. Sedation start time was 1055 and end time was 1131 for a total intra-service/procedure face-face time of 36 minutes. A total of 3 mg intravenous Versed and a total of 75 mcg intravenous Fentanyl in multiple divided doses was administered for moderate sedation. Moderate sedation was administered by qualified/certified observer Elise Hernadez RN under my supervision with intra-procedure [id number] observation and management throughout the entirety of the procedure. There were no other issues or complications and patient tolerated the procedure well. See post-anesthesia documentation. Anesthesia: local and other (moderate/conscious sedation) Surgeon: Roberto Edwards MD Estimated blood loss (mL): 10 Drains: No Packing: No Pathology: none sent Complications: No immediate complications Condition: stable Disposition: floor Findings: CORONAR
--- NOTE | 2020-12-30 13:05 | PC.NURSE ---
Patient returned to room following cardiac cath. Report received from SUSANA Rojo.
[2020-12-30] MEDS: SODIUM CHLORIDE 0.9% IV 1,000 ML 150 ML IV CONT (13:20)
--- NOTE | 2020-12-30 14:21 | PM.PNCARD ---
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 EF 40-45% with mild LV enlargement with apical hypokinesis. Nonischemic cardiomyopathy. Anginal chest pain may be related to cardiomyopathy as well as myocardial bridging. Discontinue nitrate therapy. Amlodipine 5 mg daily to start for basal dilatory therapy and improvement in chest pain as well as BP control. Stable for discharge home this afternoon to follow up as scheduled as an outpatient with Dr. Edwards in 4 weeks. Post catheterization precautions as noted discussed at bedside with the patient and his daughter. (2) Left bundle branch block: Code(s): I44.7 - Left bundle-branch block, unspecified Status: Acute Assessment and Plan: Recent diagnosis in setting of a LV dysfunction, abnormal stress test and unstable anginal symptoms. Chronicity of LBBB at least a year if not longer. (3) Cardiomyopathy: Code(s): I42.9 - Cardiomyopathy, unspecified Status: Acute Assessment and Plan: EF 40-45%, compensated new diagnosis. As above. Optimize medications as tolerated. Outpatient workup for additional nonischemic etiologies. We discussed cardiac MRI as a possibility however given his extensive surgery and hardware may not be a a candidate. (4) Essential (primary) hypertension: Code(s): I10 - Essential (primary) hypertension Status: Chronic Assessment and Plan: Stable, elevated. Continue supportive medical therapy with losartan, beta-lucio. (5) Type 2 diabetes mellitus without complication: Qualifiers: Diabetes mellitus skilled nursing insulin use: without skilled nursing use Qualified Code(s): E11.9 - Type 2 diabetes mellitus without complications Code(s): E11.9 - Type 2 diabetes mellitus without complications Status: Chronic Assessment and Plan: Per hospitalist service (6) Mixed hyperlipidemia: Code(s): E78.2 - Mixed hyperlipidemia Status: Chronic Assessment and Plan: Statin therapy. (7) Abnormal stress test: Code(s): R94.39 - Abnormal result of other cardiovascular function study Status: Acute Assessment and Plan: new LV dysfunction, LBBB. See above. Subjective Date/time seen: Date of service: 12/30/20 14:21 Follow-up for unstable angina, abnormal stress test, cardiomyopathy Review of Systems Review of Systems: All systems reviewed & are unremarkable except as noted in HPI and below Constitutional: Constitutional: Reports as per HPI, Reports no additional constitutional complaints, Reports excessive sweating and Reports fatigue Eyes: Eyes: Reports as per HPI and Reports no additional eye complaints ENT: Reports system reviewed and no additional complaints, except as documented and Reports as per HPI Cardiovascular: Cardiovascular: Reports as per HPI, Reports no additional cardiovascular complaints, Reports chest pain, Denies leg edema, Denies palpitations, Reports dyspnea and Reports dyspnea on exertion Respiratory: Respiratory: Reports as per HPI, Reports no additional respiratory complaints, Reports dyspnea and Reports dyspnea on exertion Gastrointestinal: Gastrointestinal: Reports as per HPI, Reports no additional gastrointestinal complaints, Denies abdominal pain, Denies melena and Denies hematochezia Genitourinary: Genitourinary: Reports no additional male genitourinary complaints and Reports as per HPI Musculoskeletal: Musculoskeletal: Reports no additional musculoskeletal complaints, Reports as per HPI and Reports back pain Integumentary/Breasts: Skin/Breast: Reports system reviewed and no additional complaints, except as docu and Reports as per HPI Neurologic: Reports system reviewed and no additional complaints, except as documented
--- NOTE | 2020-12-30 14:57 | PM.DS ---
DS: Admitting Diagnosis Admitting Diagnosis Admitting Diagnosis: . (1) Chest pain: (2) Uncontrolled hypertension: (3) Hyperlipidemia: (4) Type 2 diabetes mellitus without complication: DS: Discharge Diagnosis Discharge Diagnosis (1) Abnormal stress test: Code(s): R94.39 - Abnormal result of other cardiovascular function study Status: Acute Assessment and Plan: patient underwent a left heart catheterization catheterization which showed no obstructive disease of coronary (2) Unstable angina: Code(s): I20.0 - Unstable angina Status: Acute Assessment and Plan: resolved (3) Left bundle branch block: Code(s): I44.7 - Left bundle-branch block, unspecified Status: Acute Assessment and Plan: new onset (4) Cardiomyopathy: Code(s): I42.9 - Cardiomyopathy, unspecified Status: Acute Assessment and Plan: continue ,losartan ,aspirin ,metoprolol likely secondary to hypertension. follow-up in outpatient setting (5) Uncontrolled hypertension: Code(s): I10 - Essential (primary) hypertension Status: Acute Assessment and Plan: continue home (6) Angina pectoris: Code(s): I20.9 - Angina pectoris, unspecified Status: Acute Assessment and Plan: resolved single episode (7) Type 2 diabetes mellitus without complication: Qualifiers: Diabetes mellitus detention insulin use: without detention use Qualified Code(s): E11.9 - Type 2 diabetes mellitus without complications Code(s): E11.9 - Type 2 diabetes mellitus without complications Status: Chronic Assessment and Plan: continue metformin and no seen (8) Chronic low back pain: Qualifiers: Back pain laterality: bilateral Sciatica presence: unspecified whether sciatica present Qualified Code(s): M54.5 - Low back pain; G89.29 - Other chronic pain Code(s): M54.5 - Low back pain; G89.29 - Other chronic pain Status: Chronic Assessment and Plan: continue [place] DS: Summary Hospital Course Hospital Course: This is a pleasant 60 year old month with known history of hypertension, type 2 diabetes mellitus, chronic lower back pain ,hyperlipidemia, who presented to the hospital from his PCPs office secondary to ongoing intermittent left sided chest heaviness for months which has seemed to get worse over a week or so. He complained of having more frequent chest heaviness that lasts sometimes for hours. The patient denies any associated symptoms of nausea, vomiting, shortness of breath, or dizziness with his chest pain. His chest pain is described as occurring mostly when at rest. He states that his Hospital Librarian recommended he just come into the ED. He denies any other issues such as fever, chills, cough, palpitations, abdominal pain, dysuria, hematuria, diarrhea or rectal bleeding. His EKG showed a LBBB and his initial troponin is noted. patient was admitted in IMU he was ruled out for acute WA with serial negative troponin. 1 consult was obtained with Cardiology cardiology recommended the patient to go for left heart catheterization. patient was found that his coronaries are normal. patient was discharged home in a stable medical condition and will follow-up in the outpatient setting. Status at Discharge Functional status at discharge: independent ambulation Time Spent with Patient Time attestation: Total time spent providing and/or coordinating discharge services: Exam Const: General: comfortable, no acute distress, well developed, alert and awake Nutritional Appearance: overweight Orientation/consciousness: patient oriented x3 HENMT: Head: normal to inspection, normocephalic and atraumatic Ears: hearing grossly normal bilaterally Face and sinus: normal facial exam Eyes: General: appearance normal, both eyes and all related structures Pupils: Equal, round a
[2020-12-30 16:48] LABS: Glucose Point of Care 131 (65-105)
== END 2020-12-30 17:27 | disposition home or self-care (01) | DRG 287 ==
LOC: ANHED 19:09 → ANHIMU 23:58 → ANH2MED 12-31 15:27 → ANHIMU 12-31 15:27
PROVIDERS: Family Medicine; Internal Medicine Cardiovascular Disease; Admitting Provider Internal Medicine; Emergency Provider Emergency Medicine; PCP Internal Medicine; Visit Provider Internal Medicine
PROC: 4A023N7 Measurement of Cardiac Sampling and Pressure, Left Heart, Percutaneous Approach (ICD-10-PCS; CPT 93452; principal; 2020-12-30 10:30)
PROC: 4A023N7 Measurement of Cardiac Sampling and Pressure, Left Heart, Percutaneous Approach (ICD-10-PCS; 2020-12-30 10:30)
DX: I20.0 Unstable angina (principal); I42.9 Cardiomyopathy, unspecified; I10 Essential (primary) hypertension; I44.7 Left bundle-branch block, unspecified; E11.9 Type 2 diabetes mellitus without complications; M54.5 Low back pain; G89.29 Other chronic pain; E78.5 Hyperlipidemia, unspecified
CPT/HCPCS: 36415; 71046; 80048; 82948; 83735; 84484; 85025; 85610; 85730; 93005; 93458; 96372; 99285; A9270; C1760; C1887; C1894; G0269; J1644; J1650; J2250; J3010; J7030; J7040; J7120

== ENCOUNTER → 2021-01-07 11:14 | Outpatient (CLI) | payer MEDICARE, OTHER, SELFPAY ==
--- NOTE | ~2021-01-07 | CT_ITS ---
EXAMINATION: CT diagnostic chest w con EXAM DATE: 01/07/2021 12:01 INDICATION: Unstable angina, chest heaviness. TECHNIQUE: Spiral CT of the chest following intravenous injection of 75 mL Omnipaque 350. Axial, cor onal and sagittal images were reviewed. Coronal maximum intensity pixel images of chest reviewed. Bryce alejandre dose-length product (DLP) for this examination was 653.46 mGy-cm. The exposure was tailored accor ding to patient size (auto mA exposure control), and iterative reconstruction (ASIR) was used as juliet tional dose reduction technique. There is no prior study for comparison. FINDINGS: Linear left basilar subsegmental atelectasis. Right basilar 3 mm nodule on image 81. These are probably postinfectious. No central pulmonary emboli. There are no pleural or pericardial effus ions. Tracheobronchial tree is patent. There is no mediastinal, hilar or axillary lymphadenopathy . There is no pneumothorax. Heart normal in size. No evidence of coronary arterial calcificatio n. Upper abdomen is unremarkable. There is mild thoracic spondylosis without osteoblastic or osteo lytic lesions identified. Patient has diffuse idiopathic skeletal hyperostosis (DISH). IMPRESSION: 1. No evidence of coronary artery arterial sclerosis. 2. Small post infectious residua. Reviewed, dictated and finalized at location A.
[2021-01-07 11:45] LABS: Estimated Glomerular Filt Rate > 60
== END ==
PROVIDERS: PCP Internal Medicine; Visit Provider Nurse Practitioner Adult Health
DX: R07.89 Other chest pain (principal)
CPT/HCPCS: 71260; Q9967

== ENCOUNTER 2021-07-17 16:53 | Outpatient (CLI) | payer MEDICARE, OTHER, SELFPAY ==
[2021-07-17 17:28] LABS: Basophils Absolute Auto 0.1 K/mm3 (0.0-0.1); Eosinophils Absolute Auto 0.1 K/mm3 (0-0.3); Eosinophils Percent Auto 1.4 % (0-4.4); Hemoglobin 14.8 g/dL (14.0-18.0); Immature Granulocyte Absolute 0.02 K/mm3 (0.00-0.031); Immature Granulocyte Percent A 0.3 % (0-0.5); Lymphocytes Absolute Auto 1.52 K/mm3 (0.9-3.2); Lymphocytes Percent Auto 19.2 % (18.3-44.2); Mean Corpuscular HGB Conc 34.4 g/dl (32-36); Mean Corpuscular Hemoglobin 30.6 pg (26-34); Mean Corpuscular Volume 88.8 fl (80-100); Monocytes Absolute Auto 0.7 K/mm3 (0.1-0.6); Monocytes Percent Auto 8.5 % (2.6-8.5); Neutrophils Absolute Auto 5.5 K/mm3 (1.3-6.7); Neutrophils Percent Auto 69.6 % (45.5-73.1); Platelet Count Result 261 k/mm3 (150-375); Red Blood Count 4.84 M/mm3 (4.6-6.20); Red Cell Distribution Width 13.3 % (11.5-14.5); White Blood Count 7.9 K/mm3 (4.5-10.0)
[2021-07-17 17:34] LABS: Alanine Aminotransferase 46 U/L (4-50); Albumin Level 4.7 g/dL (3.5-5.1); Alkaline Phosphatase 84 U/L (38-126); Anion Gap 11 mmol/L (8-16); Aspartate Amino Transferase 46 U/L (17-59); Bilirubin,Total 0.9 mg/dL (0.2-1.3); Blood Urea Nitrogen 11 mg/dL (9-20); Calcium 9.9 mg/dL (8.4-10.2); Carbon Dioxide 27 mmol/L (22-30); Chloride 103 mmol/L (98-107); Cholesterol 160 mg/dL (0-200); Estimated Glomerular Filt Rate > 60; Glucose 119 mg/dL (65-110); HDL Direct 35 mg/dL; Potassium 4.2 mmol/L (3.4-5.0); Sodium 141 mmol/L (137-145); Triglycerides 277 mg/dL (<150)
[2021-07-17 17:45] LABS: LDL Cholesterol Direct 70 mg/dL
[2021-07-17 18:05] LABS: Thyroid Stimulating Hormone 0.597 uIU/mL (0.465-4.680)
[2021-07-17 18:52] LABS: Free T4 Free Thyroxine 1.25 ng/mL (0.78-2.19); Vitamin D 25 Hydroxy 34.4 ng/mL
[2021-07-17 19:25] LABS: Hemoglobin A1C 5.5 % (<5.7)
== END 2021-07-17 16:54 | disposition home or self-care (01) ==
PROVIDERS: PCP Internal Medicine; Visit Provider Internal Medicine
DX: I10 Essential (primary) hypertension (principal); Z79.899 Other long term (current) drug therapy; E11.9 Type 2 diabetes mellitus without complications; E55.9 Vitamin D deficiency, unspecified; E78.2 Mixed hyperlipidemia; Z86.16 Personal history of COVID-19
CPT/HCPCS: 36415; 80053; 80061; 82306; 83036; 84439; 84443; 85025; 86413

== ENCOUNTER 2021-08-19 07:35 | Outpatient (CLI) | payer MEDICARE, OTHER, SELFPAY ==
--- NOTE | 2021-08-20 11:23 | WPDSLEEPSTUD ---
Sleep Study Date of Study: 08/19/21 Ordering Provider: Ramon Means MD Interpreting Physician: Alisia Perez MD Sleep Study Type: Split Polysomnogram Height: 1.83 m Weight: 124.738 kg Body Mass Index: 37.3 Neck Circumference (inches): 19 [place]: 9 Reason for Sleep Study Poor quality sleep for years Sleep History Edward Miller is a 61 year old male with a history of poor sleep for years. His medical history includes hypertension, diabetes, heart disease, chronic back pain and depression. 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 He occasionally awakens from sleep feeling short of breath and occasionally awakens with heartburn, belching or coughing. He rarely snores but when he does it is loud enough that others complain about it. He frequently has trouble sleep with a cold. He occasionally gasp for breath at night. He occasionally has breathing problems at night observed by others. He frequently sweats excessively at night. He occasionally notices his heart pounding or beating irregularly at night. He frequently falls asleep during the day, rarely falls asleep involuntarily, never falls asleep while driving. He does not have loss of muscle tone with strong emotion or daytime difficulties due to his excessive sleepiness. He occasionally feels paralyzed on waking or falling asleep. He rarely has vivid dreamlike scenes upon awakening or falling asleep. He does not feel afraid to go to sleep. He does not have nightmares. He rarely remembers his dreams. He occasionally has racing thoughts. He rarely feels sad or depressed. He rarely has anxiety, muscular tension, rarely notices parts of his body jerking. He occasionally kicks at night. He rarely has crawling and aching feelings in his legs. He rarely has any kind of leg pain at night. He rarely has morning jaw pain. He occasionally grinds his teeth during sleep. He constantly is bothered by pain during the day. He constantly is awakened by pain throughout the night. He frequently wakes up feeling stiff in the morning, rarely wakes up with sore achy muscles, frequently wakes up with pain in the neck and spine. He has headaches, dizziness, fatigue, sexual problems, memory problems, insomnia and concentration difficulties. He takes sedatives. Normal time to get into the bed is between 8:00 p.m. and 10:00 p.m., and bedtime is midnight to 2:00 a.m., taking 10 minutes or sometimes up to 30 minutes to fall asleep. He wakes up multiple times during the night. When he awakens, he may stay awake for 10-30 minutes. He will roll over, reposition and sometimes goes to the bathroom. He wakes the morning at 10:30 a.m. but sometimes as late as 12 noon. His weekend schedule is the same. He sleeps with a service dog in his bed. His sleep is disturbed by heat, pain, dry mouth and need to urinate. He does take naps during the day. A nap may last between 1 and 2 hours and he may feel slightly refreshed. He is drowsy most of the day. He reports losing weight in the last year. Habits: Never smoked tobacco. Caffeine 2-3 servings a day. Alcohol 4-6 drinks per month. Recreational drugs: He takes 2-3 per month to control pain. [facility] Past Medical History Medical History Abdominal pain Abnormal EKG Abnormal finding of blood chemistry, unspecified Abnormal ultrasound BMI 37.0-37.9, adult BMI 38.0-38.9,adult BMI 39.0-39.9,adult Body mass index (BMI) 40.0-44.9, adult Change in mole CHF (congestive heart failure) Diabetes Elevated homocysteine Encounter for Medicare annual wellness exam Encounter for routine adult health examination without abnormal findings Encounter for special screening examination for neoplasm of prostate Epigastric pain Gout (~08/2019) Hearing loss History of COVID-19 History of hypogonadism Hypersomnolence Hypogonadism Insomnia Left foot pain Multiple acqu
[2021-08-20 14:52] VITALS: BMI 37.3
== END 2021-08-20 07:59 | disposition home or self-care (01) ==
LOC: ANHCSM 07:38
PROVIDERS: Visit Provider Internal Medicine
DX: G47.10 Hypersomnia, unspecified (principal); G47.33 Obstructive sleep apnea (adult) (pediatric); G47.61 Periodic limb movement disorder
CPT/HCPCS: 95811

== ENCOUNTER 2021-09-03 01:00 | Day surgery (SDC) | payer MEDICARE, OTHER, SELFPAY ==
--- NOTE | 2021-08-28 16:16 | PC.NURSE ---
Report to the Outpatient Waiting Room, entrance under the green pavilion located off [facility], at time __1130 on date _09/03/21___. OR Time: _1330__. - You and your visitor will be asked a series of questions to screen for COVID 19 for your protection. - A mask is required within the hospital. - Only one visitor is allowed at this time. Patient visitors will be guided where to wait when not with patient. Preoperative COVID Testing Requirements: No COVID Test needed if: (proof is required; if not received patient will have Rapid Test prior to entry) - Patient has received COVID Vaccine at least 14 days prior to procedure date or - Patient has positive COVID test result within last 90 days of surgery date. COVID Test needed if above criteria is not met If not COVID vaccinated a COVID test must be conducted within 72 hours of surgery and patient is asked to isolate self from time of testing until procedure. You will go to the [facility] for your COVID testing. The [facility] site is located at the corner of [address] [facility]. You will only be called if COVID results are positive and your surgeon may reschedule your elective surgery date. Patients may have clear liquids (water, carbonated beverages, clear teas, apple juice) until 3 hours prior to surgery with a maximum of 20 ounces. - No food from midnight until time of surgery - Infants may have breast milk until 4 hours before surgery, infant formula 6 hours prior to surgery. - Children will be allowed to drink immediately following surgery. If applicable, please bring a bottle or sippy cup to assist with drinking. Juice, water, soda, and popsicles are readily available. For infants on formula, please bring formula the day of surgery. Pacifiers are allowed. Take the following medications with a SIP of water the morning of surgery: _AMLODIPINE, METOPROLOL, PAIN AND NAUSEA MEDICATION NEEDED_ Medications to discontinue per physician __VITAMINS, SUPPLIMENTS Date to take last dose__3 DAYS BEFORE SURGERY INSTRUCTED HE COULD CONTINUE HIS ASPIRIN, TAKING ONLY ONE DAILY Please no make-up, nail hebrew, hairspray, perfume, deodorant, or body powder the day of surgery. No jewelry (including any body piercings) or valuables the day of surgery, leave them at home. Please take a shower or bath the night before, or the morning of, surgery with an antibacterial soap. Wear comfortable, loose fitting clothing. Children are encouraged to wear pajamas. - Jewelry must be removed prior to entering the operating room. Rings and piercings that are not removed may be cut off. - The hospital will not accept responsibility for valuables. - Please leave all valuables, including medications, at home the day of surgery. If you are going home after surgery, a licensed crew truck driver must drive you home. - NO public transportation without another adult. - We recommend that an adult stay with you for 24 hours following discharge. - We also recommend that you do not drive, make important decision, drink alcoholic beverages, or take any drugs that were not prescribed by your health care provider for at least 24 hours after your discharge time. For Pediatric surgeries, we recommend two adults accompany the child home (only one inside the building at this time). Follow any additional instructions given to you from your surgeon. Telephone instructions given to _PATIENT_and asked if any additional questions and then verbalized understanding. Patient advised to call surgeon office or pre surgery nurse liaison [phone] if any additional questions.
[2021-09-03] VITALS (12 sets, daily range): BP systolic 122–190; BP diastolic 57–101; PULSE 58–70; RESP 14–18; TEMP 36.1; O2SAT 92–100; BMI 38.8
--- NOTE | 2021-09-03 11:43 | WPDHPUPDATE1 ---
History and Physical Update Update Date/Time: 09/03/21 11:43 History and Physical has been reviewed, including an updated exam of the patient. There are NO changes in the patient's condition. Risks, benefits, and alternatives have been discussed and questions answered. Patient agrees to proceed with procedure.
[2021-09-03] MEDS: ACETAMINOPHEN 500 MG TABLET 1000 MG PO (12:25)
[2021-09-03] MEDS: KETOROLAC 15 MG/ML VIAL (*BKC) IV PUSH (12:26)
[2021-09-03] MEDS: LACTATED RINGERS 1,000 ML 30 ML IV CONT (12:41)
[2021-09-03 13:03] LABS: Glucose Point of Care 114 mg/dl (65-105)
--- NOTE | 2021-09-03 13:25 | WPDANESEPPF ---
Anes - Initial Pre Proc Eval Procedure: Operation Date: 09/03/21 13:30 Proposed Procedures p Laparoscopic Cholecystectomy - Ame Warren MD Date/Time: 09/03/21 13:25 Surgeon: Ame Warren MD Pre Op Diagnosis: chronic cholecystitis with stones Patient Data Age: 61 Gender: M Height: 1.83 m Weight: 130 kg Last Vital Signs Temp 97.0 F L 09/03/21 12:15 Pulse 70 09/03/21 12:15 Resp 18 09/03/21 12:15 BP 138/85 09/03/21 12:15 Pulse Ox 97 09/03/21 12:15 Allergies Allergy/AdvReac Type Severity Reaction Status Date / Time niacin AdvReac Unknown Redness of Verified 09/03/21 13:06 Skin niacinamide AdvReac Unknown Redness of Verified 09/03/21 13:06 Skin Home Medications Medication Instructions Recorded Confirmed Type aspirin 81 mg tablet,delayed 81 mg PO BID 09/07/19 09/03/21 History release cyanocobalamin (vitamin B-12) 1,000 mcg PO DAILY 09/07/19 09/03/21 History 1,000 mcg tablet omega-3 fatty acids 1,000 mg 2,000 mg PO BID cap 09/09/20 09/03/21 History capsule atorvastatin 40 mg PO HS 12/27/20 09/03/21 History folic acid 1 mg PO DAILY 12/27/20 09/03/21 History sumatriptan succinate [Imitrex] 100 mg PO PRN PRN 12/27/20 09/03/21 History amlodipine [Norvasc] 5 mg PO QAM #30 tablet 12/30/20 09/03/21 Rx metoprolol succinate [Toprol XL] 25 mg PO QAM #30 tablet 12/30/20 09/03/21 Rx fluticasone propionate 50 2 spray INTRANASAL DAILY 01/16/21 09/03/21 History mcg/actuation nasal spray,suspension blood sugar diagnostic #100 ea 04/17/21 09/03/21 Rx blood-glucose meter #1 ea 04/17/21 09/03/21 Rx lancets #100 ea 04/17/21 09/03/21 Rx cholecalciferol (vitamin D3) 25 2,000 unit PO DAILY cap 07/21/21 09/03/21 History mcg (1,000 unit) capsule zolpidem 10 mg tablet 10 mg PO QHS #30 tablet NS 08/21/21 09/03/21 Rx hydrocodone 10 mg-acetaminophen 1 tablet PO Q6H PRN #120 tablet 08/28/21 09/03/21 Rx 325 mg tablet losartan 100 mg PO DAILY 08/28/21 09/03/21 History meloxicam 15 mg PO DAILY 08/28/21 09/03/21 History metformin 1,000 mg PO DAILY 08/28/21 09/03/21 History promethazine 12.5 mg PO PRN PRN 08/28/21 09/03/21 History semaglutide [Rybelsus] 7 mg PO DAILY 08/28/21 09/03/21 History sildenafil 100 mg PO PRN PRN 08/28/21 09/03/21 History tapentadol 100 mg tablet 100 mg PO HS #30 tablet 08/28/21 09/03/21 Rx tizanidine 4 mg PO PRN PRN 08/28/21 09/03/21 History Laboratory Tests 09/03/21 12:56 POC Capillary Glucose 114 mg/dl H mg/dl (65-105) Patient hx anesthesia problems: none Family hx anesthesia problems: none Results Review: All pre-operative results and documents have been reviewed as part of the pre-operative evaluation. [facility] Past Medical History Medical History Abdominal pain Abnormal EKG Abnormal finding of blood chemistry, unspecified Abnormal ultrasound BMI 37.0-37.9, adult BMI 38.0-38.9,adult BMI 39.0-39.9,adult Body mass index (BMI) 40.0-44.9, adult Change in mole CHF (congestive heart failure) Diabetes Elevated homocysteine Encounter for Medicare annual wellness exam Encounter for routine adult health examination without abnormal findings Encounter for special screening examination for neoplasm of prostate Epigastric pain Gout (~08/2019) Hearing loss History of COVID-19 History of hypogonadism Hypersomnolence Hypogonadism Insomnia Left foot pain Multiple acquired skin tags Myocardial bridge On rn long term care drug therapy Right foot pain Skin lesion Tobacco abuse Trigger finger of both hands Vision changes Vitamin D deficiency Surgical History Surgical History History of back surgery History of hernia repair Family History Family History Father Melanoma Family history of diabetes mellitus in first degree relative Family history of glaucoma Mother Family histor
[2021-09-03] MEDS: ceFAZolin 2 GM/D5W 50 ML 2 GM/50 ML BAG IVPB (13:35)
[2021-09-03] MEDS: BUPIVACAINE HCL 0.5% PF 30 ML VIAL INFILTRATE (13:35)
[2021-09-03 14:38] LABS: Glucose Point of Care 126 mg/dl (65-105)
--- NOTE | 2021-09-03 14:38 | P.OP_ITS ---
Procedure Note - Detailed Date of Procedure 09/03/21 Pre-op Diagnosis chronic cholecystitis with stones Post-op Diagnosis same Procedure Performed Laparoscopic cholecystectomy Surgeon Ame Warren MD Anesthesia general Indications 61-year-old male presented to the office complaining of postprandial right u pper quadrant abdominal pain associated with nausea and vomiting. Workup including imaging significant for cholecystitis, cholelithiasis. Findings chronic cholecystitis with cholelithiasis Description of Procedure The patient was taken to the operating room placed in the supine position. After adequate induction of general anesthesia, the patient was prepped and draped in normal sterile fashion. A time-out was then performed to verify the patient's identity as well as the procedure being performed. I then made a 5 mm incision in the infraumbilical region. Through this, a Veress needle was placed into the peritoneal cavity and CO2 gas was then insufflated. After adequate pneumoperitoneum was achieved, the Veress needle was removed and a 5 mm optiview trocar was placed through this incision under direct visualization. I then placed the laparoscope through this trocar site and under direct visualization placed a further 12 mm subxiphoid port as well as 2 additional 5 mm ports in the right upper abdomen. The gallbladder was then identified and was noted to be moderately inflamed and distended. I was able to place a grasper at the dome of the gallbladder and this was retracted anterior and cephalad up over the liver. A 2nd retractor was then placed at the infundibulum and retracted laterally, this allowed visualization of the triangle of Calot. I then was able to visualize the cystic duct in its entirety from its proximal insertion into the gallbladder, to its distal junction with the common hepatic/common bile duct junction. At this point, I carefully skeletonized the proximal cystic duct with the [place] dissector. I then clipped and transected the proximal cystic duct. Next I visualized the cystic artery. Again the artery was skeletonized, clipped, and transected. I then used the Bovie cautery to take down the peritoneal attachments of the gallbladder off the liver bed. This was somewhat difficult given the amount of inflammation in the posterior space. Once the gallbladder specimen was completely detached, an endo-pouch was placed through the 12 mm port site. I then placed the gallbladder specimen into the Endo pouch and removed the endo-pouch from the 12 mm port site. The specimen will now be sent to pathology for further review. I then copiously irrigated the right upper quadrant. Hemostasis was noted in the liver bed, the clips were noted to be in good position on both the cystic duct stump and the cystic artery stump. No other pathology was noted in the right upper quadrant. I then moved the laparoscope to the subxiphoid port. No iatrogenic injury or other pathology was noted in the lower abdomen. I then closed the 12 mm trocar site under direct visualization using the Harsh cone and 0 Vicryl suture. At this point, the abdomen was desufflated and all ports removed. All port sites were then closed with 4.O Monocryl subcuticular sutures. Dermabond was placed on each incision. The patient tolerated the procedure well, was extubated in the operating room postoperative and will be transferred to the recovery room in stable condition Estimated Blood Loss 10 Drains No Packing No Pathology yes Complications No immediate complications Condition stable Disposition PACU
[2021-09-03] MEDS: fentaNYL CITRATE INJ (*CRX) 100 MCG/2 ML VIAL 25 MCG IV PUSH ×8 (14:50→15:17)
[2021-09-03] MEDS: hydrALAZINE HCL 20 MG/ML VIAL 5 MG IV PUSH (14:59)
[2021-09-03] MEDS: oxyCODONE HCL (*CRX) 5 MG TAB IR PO (16:04)
--- NOTE | 2021-09-03 17:46 | SUR.PHASEII ---
at 1700 pt met discharge criteria
== END 2021-09-03 17:30 | disposition home or self-care (01) ==
PROVIDERS: PCP Internal Medicine; Visit Provider Surgery
PROC: 0FT44ZZ Resection of Gallbladder, Percutaneous Endoscopic Approach (ICD-10-PCS; CPT 47562; principal; 2021-09-03 13:30)
DX: K81.1 Chronic cholecystitis (principal); I50.9 Heart failure, unspecified; E11.9 Type 2 diabetes mellitus without complications; M10.9 Gout, unspecified; E55.9 Vitamin D deficiency, unspecified; Z86.16 Personal history of COVID-19; F17.290 Nicotine dependence, other tobacco product, uncomplicated; F12.90 Cannabis use, unspecified, uncomplicated; Z79.82 Long term (current) use of aspirin; Z79.51 Long term (current) use of inhaled steroids; E66.01 Morbid (severe) obesity due to excess calories; Z68.38 Body mass index [BMI] 38.0-38.9, adult
CPT/HCPCS: 47562; 36415; 82948; 86850; 86900; 86901; 87426; 88304; A9270; C9803; J0330; J0360; J0690; J1100; J1885; J2250; J2405; J2704; J2710; J3010; J7030; J7120

== ENCOUNTER 2021-09-03 10:48 | Outpatient (CLI) | payer MEDICARE, OTHER, SELFPAY ==
[2021-09-03 11:23] LABS: EDCOVIDSCREEN Negative (Negative)
== END 2021-09-03 10:49 | disposition home or self-care (01) ==
LOC: ANHSURGERY 10:53
PROVIDERS: PCP Internal Medicine; Visit Provider Surgery
DX: Z01.812 Encounter for preprocedural laboratory examination (principal); Z20.822 Contact with and (suspected) exposure to COVID-19
CPT/HCPCS: 87426; C9803

== ENCOUNTER 2021-12-02 16:23 | Outpatient (CLI) | payer MEDICARE, OTHER, SELFPAY ==
[2021-12-02 18:12] LABS: Alanine Aminotransferase 53 U/L (4-50); Albumin Level 4.5 g/dL (3.5-5.1); Alkaline Phosphatase 66 U/L (38-126); Anion Gap 12 mmol/L (8-16); Aspartate Amino Transferase 48 U/L (17-59); Bilirubin,Total 0.8 mg/dL (0.2-1.3); Blood Urea Nitrogen 13 mg/dL (9-20); Calcium 9.8 mg/dL (8.4-10.2); Carbon Dioxide 24 mmol/L (22-30); Chloride 104 mmol/L (98-107); Cholesterol 161 mg/dL (0-200); Estimated Glomerular Filt Rate > 60; Glucose 94 mg/dL (65-110); HDL Direct 35 mg/dL; LDL Cholesterol Direct 57 mg/dL; Potassium 4.3 mmol/L (3.4-5.0); Sodium 140 mmol/L (137-145); Triglycerides 309 mg/dL (<150)
[2021-12-02 18:21] LABS: Thyroid Stimulating Hormone 0.447 uIU/mL (0.465-4.680)
[2021-12-02 18:24] LABS: Free T4 Free Thyroxine 1.11 ng/mL (0.78-2.19)
[2021-12-02 18:51] LABS: Prostate Specific Antigen 2.5 ng/mL (< OR = 4.0)
[2021-12-02 19:00] LABS: Hemoglobin A1C 5.3 % (<5.7)
== END 2021-12-02 16:24 | disposition home or self-care (01) ==
LOC: ANHLAB 16:27
PROVIDERS: PCP Internal Medicine; Visit Provider Internal Medicine
DX: Z12.5 Encounter for screening for malignant neoplasm of prostate (principal); E11.9 Type 2 diabetes mellitus without complications; E78.2 Mixed hyperlipidemia; I10 Essential (primary) hypertension; Z79.899 Other long term (current) drug therapy
CPT/HCPCS: 36415; 80053; 80061; 83036; 84153; 84439; 84443; G0103

== ENCOUNTER 2022-04-15 16:41 | Outpatient (CLI) | payer MEDICARE, OTHER, SELFPAY ==
[2022-04-15 16:52] LABS: Basophils Absolute Auto 0.1 K/mm3 (0.0-0.1); Basophils Percent Auto 0.8 % (0.2-1.2); Eosinophils Absolute Auto 0.1 K/mm3 (0-0.3); Eosinophils Percent Auto 1.8 % (0-4.4); Hematocrit 41.3 % (42.0-52.0); Hemoglobin 13.5 g/dL (14.0-18.0); Immature Granulocyte Absolute 0.04 K/mm3 (0.00-0.031); Immature Granulocyte Percent A 0.6 % (0-0.5); Lymphocytes Absolute Auto 1.57 K/mm3 (0.9-3.2); Lymphocytes Percent Auto 22.1 % (18.3-44.2); Mean Corpuscular HGB Conc 32.7 g/dl (32-36); Mean Corpuscular Hemoglobin 29.9 pg (26-34); Mean Corpuscular Volume 91.4 fl (80-100); Mean Platelet Volume 9.6 fl (7.4-10.4); Monocytes Absolute Auto 0.5 K/mm3 (0.1-0.6); Monocytes Percent Auto 7.6 % (2.6-8.5); Neutrophils Absolute Auto 4.8 K/mm3 (1.3-6.7); Neutrophils Percent Auto 67.1 % (45.5-73.1); Platelet Count Result 261 k/mm3 (150-375); Red Blood Count 4.52 M/mm3 (4.6-6.20); Red Cell Distribution Width 14.1 % (11.5-14.5); White Blood Count 7.1 K/mm3 (4.5-10.0)
[2022-04-15 17:07] LABS: Alanine Aminotransferase 35 U/L (6-50); Albumin Level 4.4 g/dL (3.5-5.1); Alkaline Phosphatase 79 U/L (38-126); Anion Gap 7 mmol/L (8-16); Aspartate Amino Transferase 33 U/L (17-59); Bilirubin,Total 0.7 mg/dL (0.2-1.3); Blood Urea Nitrogen 11 mg/dL (9-20); Carbon Dioxide 30 mmol/L (22-30); Chloride 103 mmol/L (98-107); Cholesterol 110 mg/dL (0-200); Estimated Glomerular Filt Rate > 60; Glucose 112 mg/dL (65-110); HDL Direct 28 mg/dL; Potassium 4.3 mmol/L (3.4-5.0); Sodium 140 mmol/L (137-145); Triglycerides 228 mg/dL (<150)
[2022-04-15 17:12] LABS: Hemoglobin A1C 5.2 % (<5.7)
[2022-04-15 17:18] LABS: LDL Cholesterol Direct 32 mg/dL
[2022-04-15 17:37] LABS: Thyroid Stimulating Hormone 0.878 uIU/mL (0.465-4.680)
[2022-04-15 17:54] LABS: Free T4 Free Thyroxine 1.12 ng/mL (0.78-2.19); Vitamin D 25 Hydroxy 64.4 ng/mL
== END 2022-04-15 16:42 | disposition home or self-care (01) ==
LOC: ANHLAB 16:42
PROVIDERS: PCP Internal Medicine; Visit Provider Internal Medicine
DX: E11.9 Type 2 diabetes mellitus without complications (principal); E55.9 Vitamin D deficiency, unspecified; E78.2 Mixed hyperlipidemia; I10 Essential (primary) hypertension; Z13.29 Encounter for screening for other suspected endocrine disorder; Z79.899 Other long term (current) drug therapy
CPT/HCPCS: 36415; 80053; 80061; 82306; 83036; 84439; 84443; 85025

== ENCOUNTER 2023-03-04 15:37 | Outpatient (CLI) | payer MEDICARE, OTHER, SELFPAY ==
[2023-03-04 16:41] LABS: Basophils Absolute Auto 0.1 K/mm3 (0.0-0.1); Basophils Percent Auto 0.6 % (0.2-1.2); Eosinophils Absolute Auto 0.2 K/mm3 (0-0.3); Eosinophils Percent Auto 1.8 % (0-4.4); Hematocrit 45.9 % (42.0-52.0); Hemoglobin 15.3 g/dL (14.0-18.0); Immature Granulocyte Absolute 0.03 K/mm3 (0.00-0.031); Immature Granulocyte Percent A 0.4 % (0-0.5); Lymphocytes Absolute Auto 2.16 K/mm3 (0.9-3.2); Lymphocytes Percent Auto 25.7 % (18.3-44.2); Mean Corpuscular HGB Conc 33.3 g/dl (32-36); Mean Corpuscular Hemoglobin 30.2 pg (26-34); Mean Corpuscular Volume 90.7 fl (80-100); Mean Platelet Volume 10.6 fl (7.4-10.4); Monocytes Absolute Auto 0.7 K/mm3 (0.1-0.6); Monocytes Percent Auto 7.7 % (2.6-8.5); Neutrophils Absolute Auto 5.4 K/mm3 (1.3-6.7); Neutrophils Percent Auto 63.8 % (45.5-73.1); Platelet Count Result 293 k/mm3 (150-375); Red Blood Count 5.06 M/mm3 (4.6-6.20); Red Cell Distribution Width 14.2 % (11.5-14.5); White Blood Count 8.4 K/mm3 (4.5-10.0)
[2023-03-04 17:33] LABS: Free T4 Free Thyroxine 1.22 ng/mL (0.78-2.19); Vitamin D 25 Hydroxy 31.8 ng/mL
[2023-03-04 17:48] LABS: Alanine Aminotransferase 43 U/L (6-50); Albumin Level 4.6 g/dL (3.5-5.1); Alkaline Phosphatase 76 U/L (38-126); Anion Gap 9 mmol/L (8-16); Aspartate Amino Transferase 39 U/L (17-59); Bilirubin,Total 0.9 mg/dL (0.2-1.3); Blood Urea Nitrogen 15 mg/dL (9-20); Calcium 9.2 mg/dL (8.4-10.2); Carbon Dioxide 28 mmol/L (22-30); Chloride 101 mmol/L (98-107); Cholesterol 151 mg/dL (0-200); Estimated Glomerular Filt Rate > 60; Glucose 92 mg/dL (65-110); HDL Direct 35 mg/dL; Potassium 4.1 mmol/L (3.4-5.0); Sodium 138 mmol/L (137-145); Triglycerides 385 mg/dL (<150)
[2023-03-04 17:59] LABS: LDL Cholesterol Direct 57 mg/dL
[2023-03-04 18:01] LABS: Hemoglobin A1C 5.5 % (<5.7)
== END 2023-03-04 15:38 | disposition home or self-care (01) ==
PROVIDERS: Visit Provider Internal Medicine
DX: I10 Essential (primary) hypertension (principal); E55.9 Vitamin D deficiency, unspecified; E11.9 Type 2 diabetes mellitus without complications; Z13.29 Encounter for screening for other suspected endocrine disorder; Z79.899 Other long term (current) drug therapy; E78.2 Mixed hyperlipidemia
CPT/HCPCS: 36415; 80053; 80061; 82306; 83036; 84439; 84443; 85025

== ENCOUNTER 2023-07-15 15:54 | Outpatient (CLI) | payer MEDICARE, OTHER, SELFPAY ==
[2023-07-15 16:25] LABS: Basophils Absolute Auto 0.1 K/mm3 (0.0-0.1); Basophils Percent Auto 0.8 % (0.2-1.2); Eosinophils Absolute Auto 0.2 K/mm3 (0-0.3); Eosinophils Percent Auto 1.6 % (0-4.4); Hematocrit 48.3 % (42.0-52.0); Immature Granulocyte Absolute 0.04 K/mm3 (0.00-0.031); Immature Granulocyte Percent A 0.4 % (0-0.5); Lymphocytes Absolute Auto 2.21 K/mm3 (0.9-3.2); Lymphocytes Percent Auto 22.9 % (18.3-44.2); Mean Corpuscular HGB Conc 33.1 g/dl (32-36); Mean Corpuscular Hemoglobin 30.4 pg (26-34); Mean Corpuscular Volume 91.7 fl (80-100); Monocytes Absolute Auto 0.8 K/mm3 (0.1-0.6); Monocytes Percent Auto 8.1 % (2.6-8.5); Neutrophils Absolute Auto 6.4 K/mm3 (1.3-6.7); Neutrophils Percent Auto 66.2 % (45.5-73.1); Platelet Count Result 292 k/mm3 (150-375); Red Blood Count 5.27 M/mm3 (4.6-6.20); Red Cell Distribution Width 14.1 % (11.5-14.5); White Blood Count 9.7 K/mm3 (4.5-10.0)
[2023-07-15 16:27] LABS: Appearance Urine Clear (Clear); Bilirubin Urine Negative (Negative); Blood Urine Negative (Negative); Color Urine Yellow (Yellow); Glucose Urine UA Negative (Negative); Ketones Urine Negative (Negative); Leukocyte Esterase Ur Negative LEU/UL (Negative); Nitrate Urine Negative (Negative); Protein Urine Negative (Negative); Urobilinogen Urine 0.2 mg/dL (<2.0); pH Urine 5.5 (5.0-9.0)
[2023-07-15 16:35] LABS: Add Urine Microscopic? NO
[2023-07-15 16:53] LABS: Creatinine Urine 63.7 mg/dL
[2023-07-15 16:57] LABS: MALB Creatinine Ratio 38.1 mg/g (0-30); Microalbumin Urine Random 24.3 mg/L (0-16.7)
[2023-07-15 17:34] LABS: Alanine Aminotransferase 33 U/L (6-50); Albumin Level 4.5 g/dL (3.5-5.1); Alkaline Phosphatase 65 U/L (38-126); Anion Gap 7 mmol/L (8-16); Aspartate Amino Transferase 33 U/L (17-59); Blood Urea Nitrogen 13 mg/dL (9-20); Calcium 9.2 mg/dL (8.4-10.2); Carbon Dioxide 30 mmol/L (22-30); Chloride 103 mmol/L (98-107); Cholesterol 122 mg/dL (0-200); Estimated Glomerular Filt Rate > 60; Glucose 92 mg/dL (65-110); HDL Direct 34 mg/dL; Potassium 4.2 mmol/L (3.4-5.0); Sodium 140 mmol/L (137-145); Triglycerides 248 mg/dL (<150)
[2023-07-15 17:46] LABS: LDL Cholesterol Direct 55 mg/dL
[2023-07-15 17:49] LABS: Free T4 Free Thyroxine 1.32 ng/mL (0.78-2.19); Vitamin D 25 Hydroxy 49.6 ng/mL
[2023-07-15 18:06] LABS: Thyroid Stimulating Hormone 0.704 uIU/mL (0.465-4.680)
[2023-07-15 18:19] LABS: Hemoglobin A1C 5.3 % (<5.7)
[2023-07-16 16:22] LABS: Prostate Specific Antigen 4.1 ng/mL (< OR = 4.0)
== END 2023-07-15 15:55 | disposition home or self-care (01) ==
PROVIDERS: PCP Internal Medicine; Visit Provider Internal Medicine
DX: E78.2 Mixed hyperlipidemia (principal); E11.9 Type 2 diabetes mellitus without complications; I10 Essential (primary) hypertension; E55.9 Vitamin D deficiency, unspecified; Z13.29 Encounter for screening for other suspected endocrine disorder; Z79.899 Other long term (current) drug therapy; Z12.5 Encounter for screening for malignant neoplasm of prostate
CPT/HCPCS: 36415; 80053; 80061; 81003; 82043; 82306; 83036; 84153; 84439; 84443; 85025; G0103

== ENCOUNTER 2023-07-23 01:31 | Day surgery (SDC) | payer MEDICARE, OTHER, SELFPAY ==
[2023-07-16 08:27] VITALS: BMI 37.2
--- NOTE | 2023-07-22 15:32 | PM.HPGS ---
History of Present Illness History of Present Illness Consent: Risks, benefits, and alternatives have been discussed and questions answered. Patient agrees to proceed with procedure. Chief complaint: hx of colon polyps Narrative: Edward Miller is a 63 year old male Referred for colon cancer screening. He had underwent colonoscopy with removal of a tubular adenoma 6 years ago. Review of Systems Review of Systems: All systems reviewed & are unremarkable except as noted in HPI and below PMFSH Past Medical History Medical History Abdominal pain Abnormal EKG Abnormal finding of blood chemistry, unspecified Abnormal ultrasound ASHD (arteriosclerotic heart disease) BMI 36.0-36.9,adult BMI 37.0-37.9, adult BMI 38.0-38.9,adult BMI 39.0-39.9,adult Body mass index (BMI) 40.0-44.9, adult Change in mole CHF (congestive heart failure) CHF (congestive heart failure) Colon cancer screening Diabetes Diarrhea Elevated homocysteine Encounter for Medicare annual wellness exam Encounter for routine adult health examination without abnormal findings Epigastric pain Gout (~08/2019) Hearing loss History of COVID-19 History of hypogonadism Hypersomnolence Hypogonadism Insomnia Left foot pain Multiple acquired skin tags Myocardial bridge On intermediate card tender drug therapy Right foot pain Skin lesion Stress Tobacco abuse Trigger finger of both hands Vision changes Vitamin D deficiency Surgical History Surgical History History of back surgery History of hernia repair Hx laparoscopic cholecystectomy 09/03/21 S/P cholecystectomy Family History Family History Father Melanoma Family history of diabetes mellitus in first degree relative Family history of glaucoma Mother Family history of heart disease in male family member before age 55 Family history of cardiovascular disease Diabetes mellitus Family history of diabetes mellitus in first degree relative Other Biliary atresia in pediatric patient Liver transplant recipient Daughter Biliary atresia in pediatric patient Daughter Liver transplant recipient Other Family history of coronary artery disease Family history of diabetes mellitus Social History Social History Smoking status: Current some day smoker Tobacco type: pipe and cigars Second hand tobacco smoke exposure: No Additional smoking assessment comments: OCCASIONAL SMOKER FOR 50 YRS Alcohol intake: current Drinks per week: 2 Alcohol use details: 2 drinks monthly Substance use: never Substance use type: marijuana Other substance usage details: couple times a year Last use: 2X MONTH Living arrangements: alone Gender identity (if verbalized by the patient): Male Sexual Orientation (if Verbalized by the Patient): Straight or Heterosexual Spiritual care concerns: No Meds Home Medications and Allergies Home Medications Medication Instructions Recorded Confirmed Type aspirin 81 mg tablet,delayed 81 mg PO DAILY 09/07/19 07/16/23 History release (Aspir-Low) cyanocobalamin (vitamin B-12) 1,000 mcg PO DAILY 09/07/19 07/16/23 History 1,000 mcg tablet (Vitamin B-12) omega-3 fatty acids 1,000 mg 2,000 mg PO BID 09/09/20 07/16/23 History capsule (Fish Oil Concentrate) sumatriptan succinate 50 mg tablet 100 mg PO PRN PRN Migraine Headache 12/27/20 07/16/23 History (Imitrex) amlodipine 5 mg tablet (Norvasc) 5 mg PO QAM #30 tabs 12/30/20 07/16/23 Rx metoprolol succinate 25 mg 25 mg PO QAM #30 tabs 12/30/20 07/16/23 Rx tablet,extended release 24 hr (Toprol XL) fluticasone propionate 50 2 spray intranasal DAILY PRN 01/16/21 07/16/23 History mcg/actuation nasal Allergy Symptoms spray,suspension blood-glucose meter (Contour Next #1 ea 04/17/21
[2023-07-23 12:16] VITALS: BP 129/76; PULSE 70; RESP 20; TEMP 36; O2SAT 98
[2023-07-23] MEDS: LACTATED RINGERS 1,000 ML 150 ML IV CONT (12:31)
[2023-07-23 12:34] LABS: Glucose Point of Care 120 mg/dl (65-105)
--- NOTE | 2023-07-23 13:25 | WPDANESEPPF ---
Anes - Initial Pre Proc Eval Procedure: Operation Date: 07/23/23 13:30 Proposed Procedures p Colonoscopy - Dominic Horton MD Date/Time: 07/23/23 13:25 Surgeon: Dominic Horton MD Pre Op Diagnosis: hx of colon polyps Patient Data Age: 63 Gender: M Height: 1.83 m Weight: 122.6 kg Last Vital Signs Temp 96.8 F L 07/23/23 12:16 Pulse 70 07/23/23 12:16 Resp 20 07/23/23 12:16 BP 129/76 07/23/23 12:16 Pulse Ox 98 07/23/23 12:16 O2 Del Method Room Air 07/23/23 12:16 Allergies Allergy/AdvReac Type Severity Reaction Status Date / Time niacin AdvReac Unknown Redness of Verified 07/23/23 12:14 Skin niacinamide AdvReac Unknown Redness of Verified 07/23/23 12:14 Skin Home Medications Medication Instructions Recorded Confirmed Type aspirin 81 mg tablet,delayed 81 mg PO DAILY 09/07/19 07/16/23 History release (Aspir-Low) cyanocobalamin (vitamin B-12) 1,000 mcg PO DAILY 09/07/19 07/16/23 History 1,000 mcg tablet (Vitamin B-12) omega-3 fatty acids 1,000 mg 2,000 mg PO BID 09/09/20 07/16/23 History capsule (Fish Oil Concentrate) sumatriptan succinate 50 mg tablet 100 mg PO PRN PRN Migraine Headache 12/27/20 07/16/23 History (Imitrex) amlodipine 5 mg tablet (Norvasc) 5 mg PO QAM #30 tabs 12/30/20 07/16/23 Rx metoprolol succinate 25 mg 25 mg PO QAM #30 tabs 12/30/20 07/16/23 Rx tablet,extended release 24 hr (Toprol XL) fluticasone propionate 50 2 spray intranasal DAILY PRN 01/16/21 07/16/23 History mcg/actuation nasal Allergy Symptoms spray,suspension blood-glucose meter (Contour Next #1 ea 04/17/21 07/15/23 Rx EZ Meter) cholestyramine-aspartame 4 gram 4 g PO BID #60 ea 12/02/21 07/16/23 Rx oral powder for susp in a packet blood sugar diagnostic (Contour #100 ea 04/02/22 07/15/23 Rx Next Test Strips) lancets (Microlet Lancet) #100 ea 04/02/22 07/15/23 Rx sacubitril 49 mg-valsartan 51 mg 1 tablet PO BID #180 tabs 03/04/23 07/16/23 Rx tablet (Entresto) cholecalciferol (vitamin D3) 50 50 mcg PO DAILY 03/08/23 07/16/23 History mcg (2,000 unit) capsule tapentadol 100 mg tablet (Nucynta) 100 mg PO HS #30 tabs 06/11/23 07/16/23 Rx zolpidem 10 mg tablet 10 mg PO QHS #30 tabs 07/08/23 07/16/23 Rx hydrocodone 10 mg-acetaminophen 1 tablet PO Q6H PRN pain #120 tabs 07/15/23 07/23/23 Rx 325 mg tablet atorvastatin 40 mg tablet 40 mg PO DAILY 07/16/23 07/16/23 History folic acid 1 mg tablet 1 mg PO DAILY 07/16/23 07/16/23 History meloxicam 15 mg tablet 15 mg PO DAILY 07/16/23 07/16/23 History metformin 1,000 mg tablet 1,000 mg PO BID 07/16/23 07/16/23 History semaglutide 7 mg tablet (Rybelsus) 7 mg PO DAILY 07/16/23 07/16/23 History sildenafil 100 mg tablet 100 mg PO DAILY PRN Sexual Activity 07/16/23 07/16/23 History tizanidine 4 mg tablet 4 mg PO TID PRN muscle spams 07/16/23 07/16/23 History Laboratory Tests 07/23/23 12:28 POC Capillary Glucose 120 H mg/dl (65-105) Patient hx anesthesia problems: none Family hx anesthesia problems: none Results Review: All pre-operative results and documents have been reviewed as part of the pre-operative evaluation. [facility] Past Medical History Medical History Abdominal pain Abnormal EKG Abnormal finding of blood chemistry, unspecified Abnormal ultrasound ASHD (arteriosclerotic heart disease) BMI 36.0-36.9,adult BMI 37.0-37.9, adult BMI 38.0-38.9,adult BMI 39.0-39.9,adult Body mass index (BMI) 40.0-44.9, adult Change in mole CHF (congestive heart failure) CHF (congestive heart failure) Colon cancer screening Diabetes Diarrhea Elevated homocysteine Encounter for Medicare annual wellness exam Encounter for routine adult health examination without abnormal findings Epigastric pain Gout (~08/2019) Hearing loss History of COVID-19 History of hypogonadism Hypersomnolence Hypogonadism Insomnia Left foot pain Multiple acquired skin ta
[2023-07-23 13:50] VITALS: BP 107/68; PULSE 61; RESP 16; O2SAT 98
[2023-07-23 14:00] VITALS: BP 118/78; PULSE 62; RESP 18; O2SAT 97
[2023-07-23 14:10] VITALS: BP 127/80; PULSE 60; RESP 17; O2SAT 97
== END 2023-07-23 14:21 | disposition home or self-care (01) ==
PROVIDERS: PCP Internal Medicine; Visit Provider Internal Medicine Gastroenterology
PROC: 0DJD8ZZ Inspection of Lower Intestinal Tract, Via Natural or Artificial Opening Endoscopic (ICD-10-PCS; CPT 45378; principal; 2023-07-23 13:30)
DX: Z12.11 Encounter for screening for malignant neoplasm of colon (principal); K57.30 Diverticulosis of large intestine without perforation or abscess without bleeding; K64.8 Other hemorrhoids; Z86.010 Personal history of colon polyps; I25.10 Atherosclerotic heart disease of native coronary artery without angina pectoris; I50.9 Heart failure, unspecified; E11.9 Type 2 diabetes mellitus without complications; E55.9 Vitamin D deficiency, unspecified; G47.00 Insomnia, unspecified; F12.90 Cannabis use, unspecified, uncomplicated; E66.9 Obesity, unspecified; Z68.36 Body mass index [BMI] 36.0-36.9, adult; Z79.82 Long term (current) use of aspirin; Z79.84 Long term (current) use of oral hypoglycemic drugs; Z79.891 Long term (current) use of opiate analgesic; Z72.0 Tobacco use
CPT/HCPCS: G0105; 82948; J2704; J7120

== ENCOUNTER 2023-09-20 12:52 | Outpatient (CLI) | payer MEDICARE, OTHER, SELFPAY ==
--- NOTE | ~2023-09-20 | NM_ITS ---
EXAMINATION: NM bone scan whole body DATE: 09/20/2023 16:10 INDICATION: Malignant neoplasm of the prostate TECHNIQUE: 24.3 mCi Tc-99m HDP was administered intravenously. Delayed whole-body scintigrams were o btained. COMPARISON: Chest CT dated 01/07/2021 FINDINGS: Likely degenerative joint centered uptake at the partially visualized bilateral hands and wrists. Sma ll focus of mild likely enthesopathic uptake at the cephalad right patella. Mild likely degenerative uptake corresponding mild degenerative changes on prior CT at the anterior right first rib. No other suspicious foci of abnormal bone uptake to suggest metastatic disease. IMPRESSION: 1. No lesion suspicious for osseous metastatic disease. Reviewed, dictated and finalized at location A. [facility] [employer]
== END 2023-09-20 12:53 | disposition home or self-care (01) ==
PROVIDERS: PCP Internal Medicine; Visit Provider Urology
DX: C61 Malignant neoplasm of prostate (principal)
CPT/HCPCS: 78306; A9503

== ENCOUNTER 2023-11-10 09:56 | Outpatient (CLI) | payer MEDICARE, OTHER, SELFPAY ==
--- NOTE | ~2023-11-10 | MR_ITS ---
EXAMINATION: MR pelvis wo/w con DATE: 11/10/2023 11:35 INDICATION: Prostate cancer. TECHNIQUE: Magnetic resonance imaging (MRI) of the pelvis was performed without and with 20 mL MultiH ance intravenous contrast. COMPARISON: Bone scan 09/20/2023 FINDINGS: There is a left inguinal hernia containing fat. The prostate is normal in size. There is a gel spacer between the prostate and rectum. There are scattered diverticula in the colon. There are no dilated loops of bowel. There are no pathologically enlarged lymph nodes. There is no free intraperitoneal fl uid. There are changes of posterior fusion procedure in lumbar spine. IMPRESSION: 1. Normal-sized prostate. No evidence of metastatic disease. Reviewed, dictated and finalized at location E. TER MONITOR
== END 2023-11-10 09:57 | disposition home or self-care (01) ==
LOC: ANHIMG 09:58
PROVIDERS: PCP Internal Medicine; Visit Provider Radiology Radiation Oncology
DX: C61 Malignant neoplasm of prostate (principal)
CPT/HCPCS: 72197; A9577

== ENCOUNTER 2023-11-25 16:02 | Outpatient (CLI) | payer MEDICARE, OTHER, SELFPAY ==
--- NOTE | ~2023-11-25 | XR_ITS ---
EXAMINATION: XR wrist RT min 3V, XR hand LT min 3V, XR hand RT min 3V, XR wrist LT min 3V DATE: 11/25/2023 16:28 INDICATION: Bilateral hand and wrist pain. TECHNIQUE: 1. Posteroanterior, ulnar deviation, oblique, and lateral views of the affected wrist were obtained. 2. Dorsal palmar, oblique and lateral views of the affected hand were obtained. 3. Posteroanterior, ulnar deviation, oblique, and lateral views of the affected wrist were obtained. 4. Dorsal palmar, oblique and lateral views of the affected hand were obtained. COMPARISON: None. FINDINGS: Normal alignment of the bilateral hands and wrists. No fracture identified. 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 There are central erosions with gullwing configurati on at the base of the right second and fifth and left fifth distal interphalangeal joints consistent with erosive osteoarthritis. Moderate osteoarthritis at the right first metacarpophalangeal, bilatera l first interphalangeal, right third and fourth and left fourth distal interphalangeal joints. Mild o steoarthritis at the remaining interphalangeal joints, the bilateral triscaphe and first carpal metac arpal joints and a few of the remaining metacarpophalangeal joints. IMPRESSION: 1. 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 Reviewed, dictated and finalized at location A. DEVELOPMENT CONSULTANT IMPRESSION: 1. 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 IMPRESSION: 1. 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 IMPRESSION: 1. 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
[2023-11-25 17:33] LABS: Alanine Aminotransferase 32 U/L (6-50); Albumin Level 4.2 g/dL (3.5-5.1); Alkaline Phosphatase 71 U/L (38-126); Anion Gap 5 mmol/L (8-16); Aspartate Amino Transferase 30 U/L (17-59); Bilirubin,Total 0.8 mg/dL (0.2-1.3); Blood Urea Nitrogen 13 mg/dL (9-20); Calcium 9.3 mg/dL (8.4-10.2); Carbon Dioxide 30 mmol/L (22-30); Chloride 101 mmol/L (98-107); Cholesterol 141 mg/dL (0-200); Estimated Glomerular Filt Rate > 60; Glucose 98 mg/dL (65-110); HDL Direct 34 mg/dL; Potassium 4.2 mmol/L (3.4-5.0); Sodium 136 mmol/L (137-145); Triglycerides 328 mg/dL (<150)
[2023-11-25 17:44] LABS: LDL Cholesterol Direct 56 mg/dL
[2023-11-25 18:18] LABS: Vitamin D 25 Hydroxy 40.4 ng/mL
[2023-11-25 22:34] LABS: Hemoglobin A1C 5.5 % (<5.7)
== END 2023-11-25 16:03 | disposition home or self-care (01) ==
PROVIDERS: PCP Internal Medicine; Visit Provider Internal Medicine
DX: E11.9 Type 2 diabetes mellitus without complications (principal); E78.2 Mixed hyperlipidemia; M19.041 Primary osteoarthritis, right hand; M19.042 Primary osteoarthritis, left hand; M19.031 Primary osteoarthritis, right wrist; M19.032 Primary osteoarthritis, left wrist
CPT/HCPCS: 36415; 73110; 73130; 80053; 80061; 82306; 83036

== ENCOUNTER 2024-04-07 12:05 | Outpatient (CLI) | payer MEDICARE, OTHER, SELFPAY ==
[2024-04-07 12:47] LABS: Basophils Percent Auto 0.6 % (0.2-1.2); Eosinophils Absolute Auto 0.1 K/mm3 (0-0.3); Eosinophils Percent Auto 1.8 % (0-4.4); Hematocrit 45.4 % (42.0-52.0); Hemoglobin 15.3 g/dL (14.0-18.0); Immature Granulocyte Absolute 0.03 K/mm3 (0.00-0.031); Immature Granulocyte Percent A 0.4 % (0-0.5); Lymphocytes Absolute Auto 0.97 K/mm3 (0.9-3.2); Lymphocytes Percent Auto 13.6 % (18.3-44.2); Mean Corpuscular HGB Conc 33.7 g/dl (32-36); Mean Corpuscular Hemoglobin 31.6 pg (26-34); Mean Corpuscular Volume 93.8 fl (80-100); Mean Platelet Volume 9.7 fl (7.4-10.4); Monocytes Absolute Auto 0.6 K/mm3 (0.1-0.6); Neutrophils Absolute Auto 5.3 K/mm3 (1.3-6.7); Neutrophils Percent Auto 74.6 % (45.5-73.1); Platelet Count Result 258 k/mm3 (150-375); Red Blood Count 4.84 M/mm3 (4.6-6.20); Red Cell Distribution Width 13.7 % (11.5-14.5); White Blood Count 7.1 K/mm3 (4.5-10.0)
[2024-04-07 12:58] LABS: Alanine Aminotransferase 32 U/L (6-50); Albumin Level 4.7 g/dL (3.5-5.1); Alkaline Phosphatase 74 U/L (38-126); Anion Gap 8 mmol/L (4-12); Aspartate Amino Transferase 29 U/L (17-59); Bilirubin,Total 0.9 mg/dL (0.2-1.3); Blood Urea Nitrogen 16 mg/dL (9-20); Calcium 9.4 mg/dL (8.4-10.2); Carbon Dioxide 29 mmol/L (22-30); Chloride 104 mmol/L (98-107); Estimated Glomerular Filt Rate > 60; Glucose 97 mg/dL (65-110); Potassium 4.2 mmol/L (3.4-5.0); Sodium 141 mmol/L (137-145)
[2024-04-07 13:00] LABS: Hemoglobin A1C 5.2 % (<5.7)
[2024-04-07 13:29] LABS: Prostate Specific Antigen 1.6 ng/mL (< OR = 4.0)
[2024-04-07 13:33] LABS: Free T4 Free Thyroxine 1.19 ng/mL (0.78-2.19)
== END 2024-04-07 12:06 | disposition home or self-care (01) ==
LOC: ANHLAB 12:10
PROVIDERS: PCP Internal Medicine; Visit Provider Internal Medicine
DX: E11.9 Type 2 diabetes mellitus without complications (principal); I10 Essential (primary) hypertension; Z85.46 Personal history of malignant neoplasm of prostate; Z13.29 Encounter for screening for other suspected endocrine disorder; Z79.899 Other long term (current) drug therapy
CPT/HCPCS: 36415; 80053; 83036; 84153; 84439; 84443; 85025

== ENCOUNTER 2024-07-18 15:55 | Emergency (ER) | payer MEDICARE, OTHER, SELFPAY ==
--- NOTE | ~2024-07-18 | XR_ITS ---
EXAMINATION: XR chest 2V Exam Date/Time: 07/18/2024 16:30 CDT HISTORY: cp Comparison: 12/27/2020. RESULT: Lines, tubes, and devices: Cholecystectomy clips. Lungs and pleura: Streaky bibasilar scar/atelectasis. Cardiomediastinal silhouette: Stable. Left hemidiaphragm elevation Other: No acute osseous or upper abdominal finding. IMPRESSION: No acute cardiopulmonary process. Reviewed, dictated and finalized at location K.
--- NOTE | 2024-07-18 06:41 | ECG_ITS ---
Test Date: 2024-07-18 20:54:18 Measurements Intervals [place] Rate: 63 P: 31 KS: 210 QRS: -5 QRSD: 88 T: 53 QT: 390 QTc: 401 Interpretive Statements SINUS RHYTHM WITH FIRST DEGREE AV BLOCK WITH OCCASIONAL SUPRAVENTRICULAR PREMATURE COMPLEXES LOW QRS VOLTAGE IN PRECORDIAL LEADS [QRS DEFLECTION < 1.0 mV IN CHEST LEADS] MODERATE VOLTAGE CRITERIA FOR LVH, CONSIDER NORMAL VARIANT [MEETS CRITERIA IN ONE OF: R(aVL), S(V1), R(V5), R(V5/V6)+S(V1)] Compared to ECG 07/18/2024 16:01:53 First degree AV block now present Ventricular premature complex(es) no longer present Electronically Signed On 07-20-2024 11:58:41 CDT by Bolivar Sanchez M.D.
--- NOTE | 2024-07-18 15:57 | ECG_ITS ---
Test Date: 2024-07-18 16:01:53 Measurements Intervals [place] Rate: 64 P: 44 MA: 202 QRS: -7 QRSD: 102 T: 60 QT: 384 QTc: 399 Interpretive Statements SINUS RHYTHM WITH OCCASIONAL VENTRICULAR PREMATURE COMPLEXES LOW QRS VOLTAGE IN PRECORDIAL LEADS [QRS DEFLECTION < 1.0 mV IN CHEST LEADS] MODERATE VOLTAGE CRITERIA FOR LVH, CONSIDER NORMAL VARIANT [MEETS CRITERIA IN ONE OF: R(aVL), S(V1), R(V5), R(V5/V6)+S(V1)] ABNORMAL ECG No previous ECG available for comparison Electronically Signed On 07-19-2024 13:46:50 CDT by Sudeep Hammonds M.D.
[2024-07-18 16:00] VITALS: BP 141/91; PULSE 68; RESP 14; TEMP 36.5; O2SAT 100
--- NOTE | 2024-07-18 16:14 | ED.CHESTPAIN ---
HPI - Chest Pain General Chief Complaint: Chest Pain <Amita Luna PA-C - Last Filed: 07/19/24 09:55> Stated Complaint: chest pain <Amita Luna PA-C - Last Filed: 07/19/24 09:55> Time Seen by Provider: 07/18/24 16:14 <Amita Luna PA-C - Last Filed: 07/19/24 09:55> Focused HPI: This is a 64 year old male that presents to the ER for left sided chest pain. Ongoing intermittently over the last couple of days, worsening since last night. Pain is sharp in nature. Reports a lot of stress lately. GENERAL: Well-appearing, well-nourished, and in no acute distress. HEAD: Normocephalic, atraumatic. CHEST: Clear to auscultation. ?No respiratory distress. HEART: Regular rate and rhythm.? NEURO: ?Alert and oriented x3. Patient screened in triage and initial orders placed.? ?Additional care and disposition to be based upon?diagnostic testing and treatment. <Amita Luna PA-C - Last Filed: 07/19/24 09:55> History of Present Illness HPI narrative: The patient 64-year-old gentleman presents emergency department chief complaint of left-sided chest discomfort. Patient reports that his brother was recently arrested for discharging a firearm and the patient reports he has been under lot of stress the patient states that pain is actually improved since he has arrived to the emergency department patient did report that he went to his doctor and they recommended that he come to the emergency department for evaluation. The patient reports that he is followed by cardiology <Sanchez Neff MD - Last Filed: 07/18/24 22:27> Related Data Home Medications: Home Medications Medication Instructions Recorded Confirmed aspirin 81 mg tablet,delayed 81 mg PO DAILY 09/07/19 04/07/24 release (Aspir-Low) cyanocobalamin (vitamin B-12) 1,000 mcg PO DAILY 09/07/19 04/07/24 1,000 mcg tablet (Vitamin B-12) omega-3 fatty acids 1,000 mg 2,000 mg PO BID 09/09/20 04/07/24 capsule (Fish Oil Concentrate) sumatriptan succinate 50 mg tablet 100 mg PO PRN PRN Migraine Headache 12/27/20 04/07/24 (Imitrex) fluticasone propionate 50 2 spray intranasal DAILY PRN 01/16/21 04/07/24 mcg/actuation nasal Allergy Symptoms spray,suspension cholecalciferol (vitamin D3) 50 50 mcg PO DAILY 03/08/23 04/07/24 mcg (2,000 unit) capsule Fiber Gummies BYMOUTH 11/25/23 04/07/24 <Amita Luna PA-C - Last Filed: 07/19/24 09:55> Allergies/Adverse Reactions: Allergies Allergy/AdvReac Type Severity Reaction Status Date / Time niacin AdvReac Unknown Redness of Verified 05/09/24 14:52 Skin niacinamide AdvReac Unknown Redness of Verified 05/09/24 14:52 Skin <Amita Luna PA-C - Last Filed: 07/19/24 09:55> Review of Systems Review of Systems: A 10 system review of systems was completed on the patient and is negative except for what is stated in the HPI. Nursing and ancillary documentation was reviewed. <Sanchez Neff MD - Last Filed: 07/18/24 22:27> PENDING SALE TO [facility] Past Medical History Medical History: Medical History Abdominal pain Abnormal EKG Abnormal finding of blood chemistry, unspecified Abnormal ultrasound ASHD (arteriosclerotic heart disease) BMI 36.0-36.9,adult BMI 37.0-37.9, adult BMI 38.0-38.9,adult BMI 39.0-39.9,adult Body mass index (BMI) 40.0-44.9, adult Change in mole CHF (congestive heart failure) CHF (congestive heart failure) Chronic cholecystitis with calculus Chronic cholecystitis without calculus Colon cancer screening Diabetes Diarrhea Dry skin Elevated homocysteine Encounter for Medicare annual wellness exam Encounter for routine adult health examination without abnormal findings Epigastric pain Gout (~08/2019) Hand pain Hearing loss History of COVID-19 History of hypogonadism History of prostate cancer Hypersomnolence Hypogonadism Injury of tendon of right rotator cuff Insomnia
[2024-07-18 16:17] LABS: Basophils Percent Auto 0.6 % (0.2-1.2); Eosinophils Absolute Auto 0.1 K/mm3 (0-0.3); Eosinophils Percent Auto 2.1 % (0-4.4); Hematocrit 43.7 % (42.0-52.0); Hemoglobin 14.7 g/dL (14.0-18.0); Immature Granulocyte Absolute 0.02 K/mm3 (0.00-0.031); Immature Granulocyte Percent A 0.3 % (0-0.5); Lymphocytes Absolute Auto 1.27 K/mm3 (0.9-3.2); Lymphocytes Percent Auto 20.3 % (18.3-44.2); Mean Corpuscular HGB Conc 33.6 g/dl (32-36); Mean Corpuscular Hemoglobin 31.3 pg (26-34); Mean Corpuscular Volume 93.2 fl (80-100); Mean Platelet Volume 10.1 fl (7.4-10.4); Monocytes Absolute Auto 0.6 K/mm3 (0.1-0.6); Monocytes Percent Auto 9.4 % (2.6-8.5); Neutrophils Absolute Auto 4.2 K/mm3 (1.3-6.7); Neutrophils Percent Auto 67.3 % (45.5-73.1); Platelet Count Result 269 k/mm3 (150-375); Red Blood Count 4.69 M/mm3 (4.6-6.20); Red Cell Distribution Width 14.1 % (11.5-14.5); White Blood Count 6.3 K/mm3 (4.5-10.0)
[2024-07-18 16:32] LABS: Prothrombin Time 13.7 Seconds (11.1-14.7)
[2024-07-18 16:33] LABS: Alanine Aminotransferase 28 U/L (6-50); Albumin Level 4.4 g/dL (3.5-5.1); Alkaline Phosphatase 74 U/L (38-126); Anion Gap 10 mmol/L (4-12); Aspartate Amino Transferase 28 U/L (17-59); Bilirubin,Total 0.9 mg/dL (0.2-1.3); Blood Urea Nitrogen 10 mg/dL (9-20); Calcium 9.6 mg/dL (8.4-10.2); Carbon Dioxide 24 mmol/L (22-30); Chloride 104 mmol/L (98-107); Estimated CRCL calculation 101 ml/min; Estimated Glomerular Filt Rate > 60; Glucose 90 mg/dL (65-110); Lipase 67 U/L (23-300); Partial Thromboplastin Time 27.4 Seconds (22.3-36.8); Potassium 4.2 mmol/L (3.4-5.0); Sodium 138 mmol/L (137-145)
[2024-07-18 16:45] LABS: Troponin I < 0.012 ng/mL (0.000-0.034)
[2024-07-18 20:29] VITALS: BP 136/50; PULSE 68; RESP 22; TEMP 36.4; O2SAT 97
--- NOTE | 2024-07-18 20:41 | PC.NURSE ---
No answer at this time for repeat VS
[2024-07-18 21:08] LABS: Troponin I < 0.012 ng/mL (0.000-0.034)
[2024-07-18 22:43] VITALS: O2SAT 100
[2024-07-18 22:44] VITALS: PULSE 88; RESP 14; TEMP 36.5; O2SAT 100
== END 2024-07-18 22:45 | disposition home or self-care (01) ==
PROVIDERS: Emergency Medicine; Emergency Provider Emergency Medicine; PCP Internal Medicine
DX: R07.89 Other chest pain (principal); I25.10 Atherosclerotic heart disease of native coronary artery without angina pectoris; I50.9 Heart failure, unspecified; E11.9 Type 2 diabetes mellitus without complications; E55.9 Vitamin D deficiency, unspecified; M10.9 Gout, unspecified; F17.290 Nicotine dependence, other tobacco product, uncomplicated; Z85.46 Personal history of malignant neoplasm of prostate; Z86.16 Personal history of COVID-19; Z90.49 Acquired absence of other specified parts of digestive tract; Z79.82 Long term (current) use of aspirin; Z79.84 Long term (current) use of oral hypoglycemic drugs; Z79.899 Other long term (current) drug therapy; I44.0 Atrioventricular block, first degree; I49.1 Atrial premature depolarization
CPT/HCPCS: 36415; 71046; 80053; 83690; 84484; 85025; 85610; 85730; 93005; 99284

== ENCOUNTER 2024-08-22 15:49 | Outpatient (CLI) | payer MEDICARE, OTHER, SELFPAY ==
[2024-08-22 16:35] LABS: Cholesterol 129 mg/dL (0-200); HDL Direct 41 mg/dL; Triglycerides 257 mg/dL (<150)
[2024-08-22 16:44] LABS: Hemoglobin A1C 5.5 % (<5.7)
[2024-08-22 16:46] LABS: LDL Cholesterol Direct 38 mg/dL
[2024-08-22 17:21] LABS: Add Urine Microscopic? NO; Appearance Urine Clear (Clear); Bilirubin Urine Negative (Negative); Blood Urine Negative (Negative); Color Urine Yellow (Yellow); Glucose Urine UA Negative (Negative); Ketones Urine Trace mg/dL (Negative); Leukocyte Esterase Ur Negative LEU/UL (Negative); Nitrate Urine Negative (Negative); Protein Urine Negative (Negative); Specific Grav Ur 1.027 (1.001-1.035); Urobilinogen Urine 0.2 mg/dL (<2.0); pH Urine 5.5 (5.0-9.0)
[2024-08-22 17:32] LABS: Vitamin D 25 Hydroxy 31.7 ng/mL
== END 2024-08-22 15:50 | disposition home or self-care (01) ==
PROVIDERS: PCP Internal Medicine; Visit Provider Internal Medicine
DX: Z13.29 Encounter for screening for other suspected endocrine disorder (principal); Z79.899 Other long term (current) drug therapy; E11.9 Type 2 diabetes mellitus without complications; E78.2 Mixed hyperlipidemia; E55.9 Vitamin D deficiency, unspecified
CPT/HCPCS: 36415; 80061; 81003; 82306; 83036; 84439

== ENCOUNTER 2025-02-13 13:31 | Outpatient (CLI) | payer MEDICARE, OTHER, SELFPAY ==
--- NOTE | ~2025-02-13 | XR_ITS ---
XR chest 2V Ordering provider: Ramon Means MD History: 65 years Male with . R05.9 - Cough, unspecified . Comparison: July 18, 2024 FINDINGS: MEDIASTINUM: The cardiac silhouette is not enlarged. LUNGS: No infiltrates, effusions or pneumothorax. OTHER: No free air under the diaphragm. Degenerative changes of the spine. IMPRESSION: No acute cardiopulmonary pathology. Reviewed, dictated and finalized at location A.
[2025-02-13 13:58] LABS: Basophils Percent Auto 0.6 % (0.2-1.2); Eosinophils Absolute Auto 0.2 K/mm3 (0-0.3); Eosinophils Percent Auto 2.6 % (0-4.4); Hematocrit 45.8 % (42.0-52.0); Hemoglobin 14.7 g/dL (14.0-18.0); Immature Granulocyte Absolute 0.05 K/mm3 (0.00-0.031); Immature Granulocyte Percent A 0.8 % (0-0.5); Lymphocytes Percent Auto 16.9 % (18.3-44.2); Mean Corpuscular HGB Conc 32.1 g/dl (32-36); Mean Corpuscular Hemoglobin 30.2 pg (26-34); Mean Corpuscular Volume 94.2 fl (80-100); Mean Platelet Volume 9.8 fl (7.4-10.4); Monocytes Absolute Auto 0.6 K/mm3 (0.1-0.6); Monocytes Percent Auto 9.2 % (2.6-8.5); Neutrophils Absolute Auto 4.5 K/mm3 (1.3-6.7); Neutrophils Percent Auto 69.9 % (45.5-73.1); Platelet Count Result 257 k/mm3 (150-375); Red Blood Count 4.86 M/mm3 (4.6-6.20); Red Cell Distribution Width 13.3 % (11.5-14.5); White Blood Count 6.5 K/mm3 (4.5-10.0)
[2025-02-13 14:33] LABS: NT Pro B Type Natriuretic Pept 45 pg/mL (19.9-100)
[2025-02-13 14:46] LABS: Add Urine Microscopic? NO; Appearance Urine Clear (Clear); Bilirubin Urine Negative (Negative); Blood Urine Negative (Negative); Color Urine Yellow (Yellow); Glucose Urine UA Negative (Negative); Ketones Urine Negative (Negative); Leukocyte Esterase Ur Negative LEU/UL (Negative); Nitrate Urine Negative (Negative); Protein Urine Negative (Negative); Specific Grav Ur 1.009 (1.001-1.035); Urobilinogen Urine 0.2 mg/dL (<2.0)
--- OUTSIDE RECORDS SUMMARY | 2025-02-13 14:48 | XMS_ITS | Clinical Summary ---
Author Organization [facility] Address [address] [place] [address] Care Team Providers Care Supervisor Stripping Name Role Phone Unavailable Primary Care Provider Unavailabl e Source Comments [facility],non-owned Affiliates and Associated Physician Practices is amultiple site organization consisting of ambulatory clinics and hospital sitesin [place], [place], [place] and [place]. This disclosure is being madepursuant to the Care Everywhere program and may not contain all information available regarding this patient. 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 Gender Identity Not on file Sexual Orientation Not on file Plan of Treatment Health Maintenance Due Date Last Done Comments COLOGUARD (AGES 45-75) - COL ON CA SCREENING 1960 COLON MONITORING 1960 COLONOSCOPY - COLON CA SCREENING 1960 CT COLONOGRAPHY - COLON CA SCREENING 1960 Colorectal Cancer Screening 1960 FIT - COLON CA SCREENING 1960 FLEX SIG - COLON CA SCREENING 1960 LIPID TESTING 1960 HIV SCREENING 02/01/1975 HEPATITIS C SCREENING 01/28/1978 DTAP/TDAP/TD VACCINES (1 - Tdap) 02/01/1979 PNEUMOCOCCAL VACCINE 50+ (1 of 1 - PCV) 02/01/2010 ZOSTER VACCINE (1 of 2) 02/01/2010 COVID-19 VACCINE (1 - 2023-2 5 season) 2024 DEPRESSION SCREENING 10/18/2024 INFLUENZA VACCINE (Season Ended) 2025 Respiratory Syncytial Virus (RSV) Vaccine Pt: or over 60 yrs (1 - 1-dose 75+ series) 02/01/2035 HEPATITIS B VACCINE Aged Out No longe r eligible based on patient's age to complete this topic HIB VACCINE Aged Out No longer eligi ble based on patient's age to complete this topic HPV VACCINE Aged Out No longer eligi ble based on patient's age to complete this topic MENINGOCOCCAL (Group B) VACC INE SHARED DECISION-MAKING Aged Out No longer eligibl e based on patient's age to complete this topic MENINGOCOCCAL GROUPS A/C/Y/W VACCINE Aged Out No longer eligible b ased on patient's age to complete this topic Insurance MEDICARE [facility] [place] [address] MEDICARE
--- OUTSIDE RECORDS SUMMARY | 2025-02-13 14:48 | XMS_ITS | Encounter Summary ---
Author Organization [facility] Address [address] [place] [address] Care Team Providers Care Wave Guide Assembler Name Role Phone Ramon Means MD Primary Care Provider [phone] Reason for Referral * Cardiology (Routine) - Authorized Specialty Diagnoses / Procedures Referred By Contac t Referred To Contact Diagnoses Nonischemic cardiomyopathy (HCC) Procedures Transthoracic Echo (TTE) Limited/Followup Henry Holt MD [address] [place] [id number] Phone: tel: fax: [facility] Medical [facility] Cardiology [address] [place] [address] [place] [phone] Phone: tel: fax: Referral ID Status Reason Start Date Expiration Date V isits Requested Visits Authorized [id number] Authorized 02/13/2025 03/15/2026 1 1 Reason for Visit * Reason Comments Follow-up 6 mo f/u. Edema in f eet when walking. PCP worried about fluid around heart Encounter Details Date Type Department Care Team (Latest Contact Info) Description 02/13/2025 3:00 PM CDT Office Visit [facility] Medical Group Cardiology [address] [place] [phone] Henry Holt MD [address] [place] [address] [id number] Nonischemic cardiomyopathy (CMS/HCC) (HCC) (Primary Dx); LBBB (left bundle branch block); Need for lipid screening Social History Tobacco Use Types Packs/Day Years Used Date Smoking Tobacco: Some Days Cigars Smokeless Tobacco: Never Sex and Gender Information Value Date Recorded Sex Assigned at Not on file 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 Gender Identity Not on file Sexual Orientation Not on file documented as of this encounter Last Filed Vital Signs Vital Sign Reading Time Taken Comments Blood Pressure 128/78 02/13/2025 12:52 PM CDT Pulse 64 02/13/2025 12:52 PM CDT Temperature - - Respiratory Rate - - Oxygen Saturation 96% 02/13/2025 12:52 PM CDT Inhaled Oxygen Concentration - - Weight 129.3 kg (285 lb) 02/13/2025 12:52 PM CDT Height 182.9 cm (6') 02/13/2025 12:52 PM CDT Body Mass Index 38.65 02/13/2025 12:52 PM CDT documented in this encounter Progress Notes * Henry Holt MD - 02/13/2025 3:00 PM CDT [facility] FOLLOW UP 02/13/2025 Edward Miller is a 65 y.o. male who presents for follow up of nonischemic cardiomyopathy. This is a patient that was referred to Dr. Edwards in consultation because of symptoms of chest pain and some shortness of breath that were occurring intermittently back in 2020. His evaluation showed slightly reduced left ventricular systolic function with an ejection fraction in the range of 40-45%. Left heart catheterization was done at that time that showed no evidence of coronary disease. He also subsequent to that had cardiac MRI done at [place] which was unremarkable. According to his MRI and alsofollow-up echocardiography left ventricular systolic function has normalized in response to medicaltherapy. He presents today for scheduled six-month follow-up. He says that he has been having recent problems with some shortness of breath and coughing after a trip to [place] to celebrate a family event with his daughter. He felt this though he had a viral respiratory illness but he also was reporting symptoms of shortness of breath in the supine position since that time. He saw his PCP today who thought he had pneumonia has ordered an antibiotic and a chest x-ray. He does not have any other cardiacsymptomatology. REVIEW OF SYSTEMS General ROS: negative for - chills, fatigue, fever, malaise, night sweats, weight gain or weight loss Psychological ROS: negative for - anxiety, depression, memory difficulties or sleep disturbances Ophthalmic ROS: negative for - blurry vision, decreased vision, loss of vision or scotomata ENT ROS: negative for - epistaxis, headaches, hearing change, nasal congestion, nasal discharge, sore throat, vertigo or visual changes Hematological and Lymphatic ROS: negative for - bleeding problems, blood clots, bruising, fatigue or weight loss Endocrine ROS: negative for - hot flashes, palpitations, polydipsia/polyuria or unexpected weight changes Respiratory ROS: negative for - cough, hemoptysis, orthopnea, shortness of breath, tachypnea or wheezing Cardiovascular ROS: negative for - chest pain, dyspnea on exertion, edema, irregular heartbeat, loss of consciousness, murmur, orthopnea, palpitations, paroxysmal nocturnal dyspnea, rapid heart rate or shortness of breath Gastrointestinal ROS: negative for - abdominal pain, appetite loss, blood in stools, constipation, diarrhea, gas/bloating, heartburn, hematemesis, melena or nausea/vomiting Genito-Urinary ROS: negative for - dysuria, erectile dysfunction or hematuria Musculoskeletal ROS: negative for - joint pain, muscle pain or muscular weakness Dermatological ROS: negative for dry skin, eczema, pruritus and rash HOME MEDICATIONS Current Outpatient Medications: amLODIPine (NORVASC) 10 mg tablet, Take 1 tablet by mouth once daily, Disp: 90 tablet, Rfl: 2 atorvastatin (LIPITOR) 40 mg tablet, , Disp: , Rfl: folic acid (FOLVITE) 1 mg tablet, Take 1 tablet (1,000 mcg total) by mouth daily, Disp: , Rfl: HYDROcodone-acetaminophen (NORCO) 10-325 mg per tablet, Take by mouth every 6 (six) hours as needed, Disp: , Rfl: magnesium oxide (MAG-OX) 400 mg (241.3 mg elemental magnesium) tablet, Take 1 tablet by mouth once daily, Disp: 90 tablet, Rfl: 0 meloxicam (MOBIC) 15 mg tablet, Take 1 tablet (15 mg total) by mouth daily, Disp: , Rfl: metFORMIN (GLUCOPHAGE) 1,000 mg tablet, Take 1 tablet (1,000 mg total) by mouth 2 (two) times a day, Disp: , Rfl: metoprolol XL (TOPROL-XL) 100 mg 24 hr tablet, Take 1 tablet by mouth once daily, Disp: 90 tablet, Rfl: 2 nitroglycerin (NITROSTAT) 0.4 mg SL tablet, Place 1 tablet (0.4 mg total) under the tongue every 5 (five) minutes as needed for chest pain May repeat dose q 5 min, up to 3 doses total, Disp: 30 tablet, Rfl: 2 Nucynta tablet, TAKE 1 TABLET BY MOUTH ONCE DAILY AT BEDTIME NEEDED, Disp: , Rfl: sacubitriL-valsartan (Entresto) 49-51 mg tablet, Take 1 tablet by mouth twice daily, Disp: 180 tablet, Rfl: 1 sildenafiL (VIAGRA) 100 mg tablet, TAKE 1 TABLET BY MOUTH NEEDED FOR SEXUAL ACTIVITY, Disp: , Rfl: SUMAtriptan (IMITREX) 50 mg tablet, TAKE 2 TABLETS BY MOUTH ONCE WITH FLUIDS AT ONSET OF HEADACHE MAY REPEAT AFTER 2 HOURS IF HEADACHE RETURNS NOT TO EXCEED 200MG IN 24 HOURS, Disp: , Rfl: tiZANidine (ZANAFLEX) 4 mg tablet, TAKE 1 TABLET BY MOUTH THREE TIMES DAILY NEEDED FOR MUSCLE SPASM, Disp: , Rfl: zolpidem (AMBIEN) 10 mg tablet, TAKE 1 TABLET BY MOUTH AT BEDTIME NEEDED FOR SLEEP, Disp: , Rfl: LABS AND OTHER DIAGNOSTIC TESTS No results found for: CHOL No results found for: HDL No results found for: LDLCALC No results found for: TRIG No results found for: CHOLHDL No results found for: WBC , HGB , HCT , MCV , PLT No lab exists for component: LABALBU PHYSICAL EXAM Vitals BP 128/78 (BP Location: Right arm, Patient Position: Sitting) Pulse 64 Ht 182.9 cm (6') Wt 129.3 kg (285 lb) SpO2 96% BMI 38.65 kg/m?? Physical Examination: General appearance - alert, overweight pleasant gentleman with a long and in no distress, oriented to person, place, and time and acyanotic, in no respiratory distress Mental status - affect appropriate to mood Eyes - extraocular eye movements intact, sclera anicteric, no pallor Ears - external earsappear normal, hearing grossly normal bilaterally Nose - normal and patent, no erythema or discharge Mouth - mucous membranes moist, pharynx appears normal, dental hygiene good and tongue normal Neck - supple, no significant neck masses, carotids upstroke normal bilaterally, no bruits, no JVD Chest -prolonged expiratory phase with diffuse wheezing in both lung cancino symmetric air entry, notachypnea, retractions or cyanosis Heart - normal rate, regular rhythm, normal S1, S2, no murmurs, rubs, clicks or gallops, no JVD Abdomen - soft, nontender, nondistended, no masses or organomegaly bowel sounds normal Neurological - alert, oriented, normal speech, no focal findings or movement disorder noted Musculoskeletal - no joint tenderness, deformity or swelling, no muscular tenderness noted Extremities - peripheral pulses normal, no pedal edema, no clubbing or cyanosis Skin - normal coloration and turgor, no rashes, no suspicious skin lesions noted ASSESSMENT Edward was seen today for follow-up. Diagnoses and all orders for this visit: Nonischemic cardiomyopathy (CMS/HCC) (HCC) - Transthoracic Echo (TTE) Limited/Followup; Future LBBB (left bundle branch block) PLAN/RECOMMENDATIONS Schedule limited echo to ensure that LV systolic function is still in good condition because of hissymptoms of positional dyspnea Physical exam is most consistent with bronchitis than congestive heart failure Follow-up with me when the echo takes place Henry Holt MD documented in this encounter Miscellaneous Notes * Addendum Note - Donna Vega MA - 02/13/2025 3:00 PM CDTAddended by: DONNA VEGA on: 02/13/2025 01:31 PM Modules accepted: Orders documented in this encounter Plan of Treatment Scheduled Orders Name Type Priority Associated Diagnoses Orde r Schedule Transthoracic Echo (TTE) Limited/Followup Echocardiography Routine Nonischemic cardiomyopathy (CMS/HCC) (HCC) Expected: 02/13/2025, Expires: 05/15/2026 documented as of this encounter Procedures Procedure Name Priority Date/Time Associated Diagnosis Comments POCT LIPID PANEL Routine 02/13/2025 1:29 PM CDT Need for lipid screening documented in this encounter Results * POCT lipid panel (02/13/2025 1:29 PM CDT) Cholesterol, POC 156 mg/dL HDL, POC 23 mg/dL Triglycerides, POC 269 mg/dL LDL Cholesterol POC 79 mg/dL Chol/HDL Ratio, POC 3.4 Non-HDL Cholesterol, POC 133 mg/dL Cholesterol Total, POC 156 mg/dL Capillary blood 02/13/2025 1 :29 PM CDT Henry Holt MD POINT OF CARE TEST ORDER [place] Final Result documented in this encounter Visit Diagnoses Diagnosis Nonischemic cardiomyopathy (CMS/HCC) (HCC)- Primary Other primary cardiomyopathies LBBB (left bundle branch block) Other left bundle branch block Need for lipid screening Screening for lipoid disorders documented in this encounter Discontinued Medications Medication Sig Discontinue Reason Start Date End Da te Rybelsus 7 mg tablet Patient Reported 11/12/2020 02/13/2025 documented as of this encounter Care Teams Wave Guide Assembler Relationship Specialty Start Date End Date Ramon Means MD [address] [place] [address] PCP - General Internal Medicine 11/19/20 documented as of this encounter
--- OUTSIDE RECORDS SUMMARY | 2025-02-13 14:48 | XMS_ITS | Referral Summary ---
Author Organization [facility] [address] [facility] [address] Address [address] [place] [address] Care Team Providers Care Destination Imagination Coordinator Name Role Phone Ramon Means MD Primary Care Provider Encounters Date Type Department Care Team Description 02/13/2025 3:00 PM CDT Office Visit [facility] Cardiology [address] [facility] [address] [place] [address] Henry Holt MD Nonischemic cardiomyopathy (CMS/HCC) (HCC) (Primary Dx); LBBB (left bundle branch block); Need for lipid screening from Last 3 Months Allergies Active Allergy Reactions Criticality Noted Date Comments Niacin Rash Medium 08/11/2021 Medications atorvastatin (LIPITOR) 40 mg tablet 1 Active HYDROcodone-acet aminophen (NORCO) 10-325 mg per tablet Take by mouth every 6 (six) hours as needed 1 Active meloxicam (MOBIC) 15 mg tablet Take 1 tablet (15 mg total) by mouth daily 1 Active sildenafiL (VIAGRA) 100 mg tablet TAKE 1 TABLET BY MOUTH NEEDED FOR SEXUAL ACTIVITY 1 Active SUMAtriptan (IMITREX) 50 mg tablet TAKE 2 TABLETS BY MOUTH ONCE WITH FLUIDS AT ONSET OF HEADACHE MAY REPEAT AFTER 2 HOURS IF HEADACHE RETURNS NOT TO EXCEED 200MG IN 24 HOURS 0 Active tiZANidine (ZANAFLEX) 4 mg tablet TAKE 1 TABLET BY MOUTH THREE TIMES DAILY NEEDED FOR MUSCLE SPASM 1 Active zolpidem (AMBIEN) 10 mg tablet TAKE 1 TABLET BY MOUTH AT BEDTIME NEEDED FOR SLEEP 1 Active Nucynta tablet TAKE 1 TABLET BY MOUTH ONCE DAILY AT BEDTIME NEEDED 1 Active metFORMIN (GLUCOPHAGE) 1,000 mg tablet Take 1 tablet (1,000 mg total) by mouth 2 (two) times a day 2 Active folic acid (FOLVITE) 1 mg tablet Take 1 tablet (1,000 mcg total) by mouth daily 2 Active magnesium oxide (MAG-OX) 400 mg (241.3 mg elemental magnesium) tabletIndication s:NSVT (nonsustained ventricular tachycardia) (HCC) Take 1 tablet by mouth once daily 90 tablet 4 Active sacubitriL-valsa rtan (Entresto) 49-51 mg tablet Take 1 tablet by mouth twice daily 180 tablet 1 4 Active amLODIPine (NORVASC) 10 mg tablet Take 1 tablet by mouth once daily 90 tablet 2 4 Active metoprolol XL (TOPROL-XL) 100 mg 24 hr tablet Take 1 tablet by mouth once daily 90 tablet 2 5 Active nitroglycerin (NITROSTAT) 0.[address] 1 tablet (0.4 mg total) under the tongue every 5 (five) minutes as needed for chest pain May repeat dose q 5 min, up to 3 doses total 30 tablet 2 5 10/30/19 26 Active Rybelsus 7 mg tablet 1 02/14/20 25 Discontinu ed(Patient Reported) Active Problems Problem Noted Date Diagnosed Date H/O cardiomyopathy 12/11/2022 NSVT (nonsustained ventricular tachycardia) 11/19 Morbid (severe) obesity due to excess calories 0 07/14/2022 Chronic heart failure with preserved ejection fr action 07/14/2022 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 Chest pain 02/04/2021 Nonischemic cardiomyopathy (CMS/HCC) 12/27/2020 LBBB (left bundle branch block) 12/27/2020 MADRID (dyspnea on exertion) 12/27/2020 Mixed diabetic hyperlipidemi a associated with type 2 diabetes mellitus (CMS/HCC) 12/27/2020 Hypertension associated with diabetes 12/27/2020 Open wnd of finger 01/06/2012 Resolved Problems Problem Noted Date Diagnosed Date Resolved Date Injury of finger 12/30/2011 07/28/2023 Immunizations Immunization Administration Dates Next Due Hep A / Hep B 03/31/2016 Tdap 03/31/2016 Social History Tobacco Use Types Packs/Day Years Used Date Smoking Tobacco: Some Days Cigars Smokeless Tobacco: Never Tobacco Cessation:Ready to Q uit: Not Asked; Counseling Given: Not Answered Sex and Gender Information Value Date Recorded Sex Assigned at Not on file Legal Sex Male 2:42 AM TUBE DEPATCHER Gender Identity Not on file Sexual Orientation Not on file Last Filed Vital Signs Vital Sign Reading Time Taken Comments Blood Pressure 128/78 02/13/2025 12:52 PM CDT Pulse 64 02/13/2025 12:52 PM CDT Temperature 36.4 C (97.5 F) 12/19/2020 3:00 PM TUBE DEPATCHER Respiratory Rate 16 09/22/2022 11:43 AM TUBE DEPATCHER Oxygen Saturation 96% 02/13/2025 12:52 PM CDT Inhaled Oxygen Concentration - - Weight 129.3 kg (285 lb) 02/13/2025 12:52 PM CDT Height 182.9 cm (6') 02/13/2025 12:52 PM CDT Body Mass Index 38.65 02/13/2025 12:52 PM CDT Plan of Treatment Upcoming Encounters Date Type Department Care Team (Latest Contact Info) Description 02/13/2025 3:00 PM CDT Office Visit [facility] Cardiology [address] [address] [address] [place] [id number] Henry Holt MD [address] [place] [address] Nonischemic cardiomyopathy (CMS/HCC) (HCC) (Primary Dx); LBBB (left bundle branch block); Need for lipid screening Medical Devices Implanted Type Area Pnp Device Identifier Shelf Expiration Date Model / Serial / Lot Lumbar Spine Fusion Instrumentation Spine Lumbar Hernia Mesh Abdomen Procedures Procedure Name Priority Date/Time Associated Diagnosis Comments POCT LIPID PANEL Routine 02/13/2025 1:29 PM CDT Need for lipid screening EGFR Routine 09/22/2022 12:57 PM TUBE DEPATCHER NSVT (nonsustained ventricular tachycardia) (HCC) from Last 3 Months or Most Recently Relevant to Health Maintenance Results * POCT lipid panel (02/13/2025 1:29 PM CDT) Cholesterol, POC 156 mg/dL HDL, POC 23 mg/dL Triglycerides, POC 269 mg/dL LDL Cholesterol POC 79 mg/dL Chol/HDL Ratio, POC 3.4 Non-HDL Cholesterol, POC 133 mg/dL Cholesterol Total, POC 156 mg/dL Capillary blood 02/13/2025 1 :29 PM CDT Henry Holt MD POINT OF CARE TEST ORDER BRAXTON Final Result * eGFR (09/22/2022 12:57 PM TUBE DEPATCHER) eGFR 88 mL/min/1. 73 m2 SERGE Comment: Interpretive Data Reference Interval Normal >/= 90 mL/min/1.73m2 Mildly decreased* 60 - 89 mL/min/1.73m2 Mildly to moderately decreased 45 - 59 mL/min/1.73m2 Moderately to severely decreased 30 - 44 mL/min/1.73m2 Severely decreased 15 - 29 mL/min/1.73m2 Kidney Failure < 15 mL/min/1.73m2 *Relative to young adult level Estimated glomerular filtration rate is determined by the 2020 CKD-EPI equation recommended by the National Kidney Foundation (A Unifying Approach to GFR Estimation: Recommendations of the NKF-ASK Task Force on Reassessing the Inclusion of Race in Diagnosing Kidney Disease, JASN 2020). The CKD-EPI equation should not be used for patients with unstable renal function and has not been validated in children and those over 70. Current interpretive data was last reviewed 2021. Testing performed by: [facility], [address], [place] [address] Blood 09/22/2022 12:5 7 PM TUBE DEPATCHER 09/22/2022 12:57 PM TUBE DEPATCHER Devin Biswas MD LAB BLOOD ORDERABLES F inal Result SERGE [id number] [facility] Department [place] [address] from Last 3 Months or Most Recently Relevant to Health Maintenance Insurance MEDICARE [facility] MEDICARE [employer] [place] [employer]ICARE [employer] [place] Care Teams Destination Imagination Coordinator Relationship Specialty Start Date End Date Ramon Means MD [address] [facility] [address] [place] [address] PCP - General Internal Medicine 11/19/20
--- OUTSIDE RECORDS SUMMARY | 2025-02-13 14:48 | XMS_ITS | Continuity of Care Document ---
Author Organization [facility] Address [address] [place] [address] Phone Care Team Providers Care Asset Protection Specialist Name Role Phone Ky Ambrose MD Unavailable Unavailable Allergies, Adverse Reactions, Alerts Substance Reaction Status Criticality No Known Allergies Active No Inform ation Medications Medication Instructions Dosage Effective Dates (start - stop) Status Comments METFORMIN HCL (unknown strength) Not Available - Active Medrol (Osman) 4 mg tablets in a dose pack take by Oral route as pakage directs Not Available - No Longer Active ketorolac 10 mg tablet take 1 tablet by oral route 3 times every day as needed for up to 5 days total use 10 MG - No Longer Active Percocet 5 mg-325 mg tablet take 1 - 2 by oral route every 4 - 6 hours as needed 1-2 - No Longer Active Procedures Procedure Date Global/Postop followup visit Global/Postop followup visit Global/Postop followup visit Global/Postop followup visit Smart Sling Debridement Limited Repair ruptured rotator cuff, chronic Ap Office/outpatient visit,est, mod 2016 X-ray exam shoulder minimum 2 views Office/outpatient visit,new, mod 2016 Advance Directives Directive Yes / No Effective Date File Name No Information Encounters Encounter Description Practice Location Reason(s) For Visit Diagnoses Date Provider Providers Copied on Encounter [facility], [address] [address], [place], [place], [id number], [place] tel:[phone] [facility] Right shoulder (chief complaint) Complete rotatr-cuff tear/ruptr of r shoulder, not trauma 7 Halieusman Mcpherson. [address] [facility], [facility] [address], [place], [place], [id number] , [place]. tel:[phone] Referring Provider: Ky Lundy, [address] [address], [place], [address] . tel:[phone] [facility], [address] [address], [place], [place], [id number], [place] tel:[phone] [facility] Right shoulder (chief complaint) Complete rotatr-cuff tear/ruptr of r shoulder, not trauma 7 Halie Ky. [address] [facility], [address] [address], [place], [place], [id number] , [place]. tel:[phone] Referring Provider: Ky Lundy, [address] [facility] [address] [facility], [place], [address] . tel:[phone] [facility], [address] [address], [place], [place], [id number], [place] tel:[phone] [facility] right shoulder (chief complaint) Complete rotatr-cuff tear/ruptr of r shoulder, not trauma February- 7 Laura Hunter. [address] [facility], [address] [address], [place], [place], [id number] , [place]. tel:[phone] Referring Provider: Elsa Meyers, [address] [facility] [address] [facility], [place], [address] . tel:[phone] [facility], [address] [address], [place], [place], [id number], [place] tel:[phone] [facility] right shoulder (chief complaint) Complete rotatr-cuff tear/ruptr of r shoulder, not trauma May-0 7 Laura Hunter. [address] [facility], [address], [place], [place], [id number] , [place]. tel:[phone] Referring Provider: Elsa Laura Meyers, [address] [facility] [address], [place], [address] . tel:[phone] [facility], [address] [address], [place], [place], [id number], [place] tel:[phone] [facility] No Information Apr-2 7 Halie Mcpherson. [address] [facility], [address], [place], [place], [id number] , [place]. tel:[phone] [facility], [address] [place] [address], [place], [place], [id number], [place] tel:[phone] [facility] Complete rotatr-cuff tear/ruptr of r shoulder, not trauma Apr-2 7 Halie Mcpherson. [address] [facility], [address] [address], [place], [place], [id number] , [place]. tel:[phone] Referring Provider: Ky Lundy, [address] [facility] [address] [facility], [place], [address] . tel:[phone] [facility], [facility] [address], [place], [place], [address], [place] [phone] [facility] No Information Apr-2 7 Halei Mcpherson. [address] [facility], [address] [facility], [place], [place], [id number] , [place]. tel:[phone] [facility], [address] [address], [place], [place], [address], [place] tel:[phone] [facility] Complete rotatr-cuff tear/ruptr of r shoulder, not trauma Apr-0 7 Halie Mcpherson. [address] [facility], [address], [place], [place], [address] , [place]. tel:[phone] Office/outpat ient visit,est, mod [facility], [address] [address], [place], [place], [id number], tel:[phone] [facility] right shoulder (chief complaint) Complete rotatr-cuff tear/ruptr of r shoulder, not trauma Dec- 7 Laura Hunter. [address] [facility], [address] [address], [place], [place], [id number] , . tel:[phone] Referring Provider: Elsa Meyers, [address] [place] [address] [facility], [place], [address] . tel:[phone] Office/outpat ient visit,[facility], [address] [address], [place], [place], [id number], tel:[phone] [facility] right shoulder pain (chief complaint) Pain in right shoulder Laura Hunter. [address] [place] [address], [address] [address], [place], [place], [id number] , . tel:[phone] Referring Provider: Elsa Meyers, [address] [place] [address] [facility], [place], [address] . tel:[phone] Family History Family Member Type Diagnosis Age At Onset Mother Problem (finding) stroke Mother Problem (finding) Arthritis Mother Problem (finding) Heart disease Mother Problem (finding) Diabetes Immunizations Vaccine Date Status Comments Flu (split) (3 yrs or older) administered Source: Other Provider Payers Payer name Insurance type Covered green party ID Authoriza tion(s) [place] Part B [id number] [facility] [id number] Social History Type Description Quantity Date Captured Comments Alcohol Use Details Caffeine Use Details Unknown Tobacco Use Status Occasional tobacco smoker Smoking Status Current some day smoker Smoking Tobacco Use Details Cigar: No Details Available Cigar: No Details Available Sex Male Vital Signs Date / Time: Height Weight BMI Pulse Rate Blood Pressure Temperature Respiratory Rate Body Surface Area Head Circumference Head Circ. Percentile Wt./David. Percentile BMI percentile Pulse Ox Inhaled Ox 3:52 PM 72.00 in 127.006 kg (280.00 lbs) 37.9 7 kg/m eter (2) Chief Complaint And Reason For Visit From encounter dated '05/05/2017 15:20'. Right shoulder (chief complaint). Description: Patient comes in today for follow up of his right shoulder arthroscopy Reason For Referral Reason For Referral No Information Plan Of Treatment Date Type Action Status Referral Ordered: MRI Upper extr joint, w/o contrast RT shoulder Appointment date/timeframe: 01/07/2017 ordered Referral Ordered: X-ray exam shoulder minimum 2 views RT ordered Patient Education Body Mass Index: After Your Visit completed History Of Present Illness Encounter Date Complaint History Of Prese nt Illness Right shoulder Patient comes in today for follow up of his right shoulder arthroscopy Right shoulder Patient comes in today for follow up of his right shoulder arthroscopy right shoulder Mr. Miller comes in the office today for follow up of his right shoulder. He is status post right shoulder scope acromioplasty and arthroscopic debridement of the capsule and open repair of chronic right large rotator cuff tear on 02/10/17. He is improving. He is wearing the sling and takes Percocet for pain. right shoulder Mr. Miller comes in the office today for follow up of his right shoulder. He is status post right shoulder scope acromioplasty and arthroscopic debridement of the capsule and open repair of chronic right large rotator cuff tear on 02/10/17. He states he is doing okay. He is wearing his sling. His surtures were removed in the office today. right shoulder Mr. Miller comes in the office today for MRI results of the right shoulder done at [facility] on 01/07/17. MRI was imported into the PACS system at . The study shows a full thickness tear of the supraspinatus tendon with 3.8cm of tendon retraction to level of the glenoid without significant atrophy. right shoulder pain Mr Miller is a 56 year old male who complains of right shoulder pain. He presents with pain, decreased ROM and numbness on the right side. He states that the symptoms have been acute traumatic and began on 12/23/2016. He indicates the injury occurred at home. Edward states that the symptoms began as the result of a fall injury. He fell while walking outside and landed on the elbow. The symptoms occur constantly. The problem is unchanged. Currently the patient states that the symptoms are mild-moderate. The pain is described as aching, sharp and stabbing. The symptoms occur continuously. The patient is experiencing pain in the following locations: lateral shoulder and upper arm on the right side. He rates his best pain as 6/10. He rates his worst pain as 10/10. The pain radiates from the shoulder on the right side on the right side then to the upper arm on the right side. The symptoms are aggravated by lifting and movement. Edward states that the symptoms are relieved by heat and pain medicine. In addition to right shoulder pain the patient is also experiencing decreased mobility, difficulty initiating sleep, numbness, popping, joint tenderness and tingling in the hand. The patient has had a previous none. Prior pain medications include unspecified pain medications. Prior muscle relaxants include unspec. muscle relaxants. He has had no previous treatment. Patient has not had any pertinent therapy for this condition. Patient has had arthroscopic surgery. He had a right shoulder scope about 20 years ago. He doesn't remember the surgeon's name. There were previous episodes. He experienced previous injury. Functional Status Date Functional Assessmen t No Information Instructions Date Instruction Additional Infor mation No Information Assessments Type Assessment Date assessment Complete rotatr-cuff tear/ruptr of r shoulder, not trauma Patient Care Teams Name Effective Dates (start - stop) Status Members No Information
--- OUTSIDE RECORDS SUMMARY | 2025-02-13 14:48 | XMS_ITS | Clinical Summary ---
Author Organization [facility] [address] Address [address] [place] [address] Care Team Providers Care Bedspread Inspector Name Role Phone Ramon Means MD Primary Care Provider [phone] Allergies Active Allergy Reactions Criticality Noted Date [...] Resolved Date Injury of finger 12/30/2011 07/28/2023 Encounters Date Type Department Care Team Description 02/13/2025 3:00 PM CDT Office Visit [facility] Cardiology [address] [facility] [address] [place] [address] Henry Holt MD Nonischemic cardiomyopathy (CMS/HCC) (HCC) (Primary Dx); LBBB (left bundle branch block); Need for lipid screening from Last 3 Months Immunizations Immunization Administration Dates Next Due Hep A / Hep B 03/31/2016 Tdap 03/31/2016 Surgical History Surgery Date Site/Laterality Comments BACK SURGERY SHOULDER SURGERY HERNIA REPAIR Medical History Medical History Date Comments Back pain Hyperlipidemia Overweight Abnormal stress test Family History Medical History Relation Name Comments No Known Problems Father Heart disease Mother Relation Name Status Comments Father Alive Mother Alive Social History Tobacco Use Types Packs/Day Years Used Date Smoking Tobacco: Some Days Cigars Smokeless Tobacco: Never Tobacco Cessation:Ready to Q uit: Not Asked; Counseling Given: Not Answered Sex and Gender Information Value Date Recorded Sex Assigned at Not on file Legal Sex Male 2:42 AM AUTOMOTIVE PARTS INTERPRETER Gender Identity Not on file Sexual Orientation Not on file Obstetrics History Last Filed Vital Signs Vital Sign Reading Time Taken Comments Blood Pressure 128/78 02/13/2025 12:52 PM CDT Pulse 64 02/13/2025 12:52 PM CDT Temperature 36.4 C (97.5 F) 12/19/2020 3:00 PM AUTOMOTIVE PARTS INTERPRETER Respiratory Rate 16 09/22/2022 11:43 AM AUTOMOTIVE PARTS INTERPRETER Oxygen Saturation 96% 02/13/2025 12:52 PM CDT Inhaled Oxygen Concentration - - Weight 129.3 kg (285 lb) 02/13/2025 12:52 PM CDT Height 182.9 cm (6') 02/13/2025 12:52 PM CDT Body Mass Index 38.65 02/13/2025 12:52 PM CDT Plan of Treatment Upcoming Encounters Date Type Department Care Team (Latest Contact Info) Description 02/13/2025 3:00 PM CDT Office Visit [facility] Cardiology [address] [place] [address] Henry Holt MD [address] [place], [place] [id number] Nonischemic cardiomyopathy (CMS/HCC) (HCC) (Primary Dx); LBBB (left bundle branch block); Need for lipid screening Health Maintenance Due Date Last Done Comments Albumin Creatinine Ratio, Urine 1960 Colon Cancer Screening-Colonoscopy 1960 Depression Screening 1960 Fall Risk Assessment 1960 Hemoglobin A1C 1960 Hepatitis C Screening 1960 Prostate Cancer Screening-PSA 1960 Dilated Eye Exam 1960 Foot Exam 1960 Pneumococcal vaccine 65+ (1 of 2 - PCV) 02/01/1979 Zoster Vaccine (1 of 2) 02/01/2010 eGFR 09/22/2023 09/22/2022 Abdominal Aortic Aneurysm (A AA) Screen 02/01/2025 Well Visit 65+ 02/01/2025 Influenza Vaccine (Season Ended) 2025 08/09/2018, 06/16/2017, 08/29/2016, Additional history exists Lipid Panel 02/13/2026 02/13/2025, 07/19, 07/28/2023, Additional history exists DTaP/Tdap/Td Vaccine (2 - Td or Tdap) 03/31/2026 03/31/2016 Hepatitis B Screening Completed 03/31/2016 , 08/17/2005, 09/10/2003, Additional history exists Medical Devices Implanted Type Area Job Coach Device Identifier Shelf Expiration Date Model / Serial / Lot Lumbar Spine Fusion Instrumentation Spine Lumbar Hernia Mesh Abdomen Procedures Procedure Name Priority Date/Time Associated Diagnosis Comments POCT LIPID PANEL Routine 02/13/2025 1:29 PM CDT Need for lipid screening EGFR Routine 09/22/2022 12:57 PM AUTOMOTIVE PARTS INTERPRETER NSVT (nonsustained ventricular tachycardia) (HCC) from Last 3 Months or Most Recently Relevant to Health Maintenance Results * POCT lipid panel (02/13/2025 1:29 PM CDT) Cholesterol, POC 156 mg/dL HDL, POC 23 mg/dL Triglycerides, POC 269 mg/dL LDL Cholesterol POC 79 mg/dL Chol/HDL Ratio, POC 3.4 Non-HDL Cholesterol, POC 133 mg/dL Cholesterol Total, POC 156 mg/dL Capillary blood 02/13/2025 1 :29 PM CDT us Henry Holt MD POINT OF CARE TEST ORDER BRAXTON Final Result * eGFR (09/22/2022 12:57 PM AUTOMOTIVE PARTS INTERPRETER) eGFR 88 mL/min/1. 73 m2 SERGE GALICIA Comment: Interpretive Data Reference Interval Normal >/= [...] was last reviewed 2021. Testing performed by: [facility], [address] [place] [id number] Blood 09/22/2022 12:5 7 PM AUTOMOTIVE PARTS INTERPRETER 09/22/2022 12:57 PM AUTOMOTIVE PARTS INTERPRETER Devin Biswas MD LAB BLOOD ORDERABLES F inal Result SERGE [id number] [address] Department [place] [address] from Last 3 Months or Most Recently Relevant to Health Maintenance Insurance MEDICARE [place] [employer] [place] [employer] [place] MEDICARE [place] [employer] [place] MEDICARE [facility] Care Teams Bedspread Inspector Relationship Specialty Start Date End Date Ramon Means MD [address] [facility] [address] [facility] [address] [place] [address] PCP - General Internal Medicine 11/19/20
--- OUTSIDE RECORDS SUMMARY | 2025-02-13 14:48 | XMS_ITS | Continuity of Care Document ---
Author Organization [facility] Address [address] [place] [address] [facility] [address] [place] [address] Phone Care Team Providers Care Paving Contractor Name Role Phone Mariaelena Oscar Unavailable Unavailable Procedures Procedure Date Eye Exam Established Pt Advance Directives Directive Yes / No Effective Date File Name No Information Encounters Encounter Description Practice Location Reason(s) For Visit Diagnoses Date Provider Providers Copied on Encounter [facility], [address] [place], [place], [id number], [place] tel:[phone] [facility] No Information 4-200 9 Mariaelena Oscar. [address] [facility] [address], [place], [address], [place]. tel:[phone] Family History Family Member Type Diagnosis Age At Onset No Information Payers Payer name Insurance type Covered democrat ID Authoriza tion(s) [facility] [place] State [id number] Social History Type Description Quantity Date Captured Comments Sex Male Smoking Status No Information Chief Complaint And Reason For Visit No Information Reason For Referral Reason For Referral No Information History Of Present Illness Encounter Date Complaint History Of Prese nt Illness No Information Functional Status Date Functional Assessmen t No Information Instructions Date Instruction Additional Infor mation No Information Assessments Type Assessment Date No Information Patient Care Teams Name Effective Dates (start - stop) Status Members No Information
[2025-02-13 15:02] LABS: Alanine Aminotransferase 35 U/L (6-50); Albumin Level 4.4 g/dL (3.5-5.1); Alkaline Phosphatase 76 U/L (38-126); Anion Gap 8 mmol/L (4-12); Aspartate Amino Transferase 34 U/L (17-59); Bilirubin,Total 0.9 mg/dL (0.2-1.3); Blood Urea Nitrogen 16 mg/dL (9-20); Calcium 9.3 mg/dL (8.4-10.2); Carbon Dioxide 27 mmol/L (22-30); Chloride 104 mmol/L (98-107); Cholesterol 166 mg/dL (0-200); Estimated Glomerular Filt Rate > 60; Glucose 113 mg/dL (65-110); HDL Direct 35 mg/dL; Potassium 4.3 mmol/L (3.4-5.0); Sodium 139 mmol/L (137-145); Triglycerides 327 mg/dL (<150)
[2025-02-13 15:13] LABS: LDL Cholesterol Direct 50 mg/dL
[2025-02-13 15:29] LABS: Creatinine Urine 45.5 mg/dL
[2025-02-13 15:32] LABS: MALB Creatinine Ratio 15.4 mg/g (0-30)
[2025-02-13 15:35] LABS: Prostate Specific Antigen 0.4 ng/mL (< OR = 4.0)
== END 2025-02-13 13:32 | disposition home or self-care (01) ==
PROVIDERS: PCP Internal Medicine; Visit Provider Internal Medicine
DX: R05.9 Cough, unspecified (principal); I10 Essential (primary) hypertension; E55.9 Vitamin D deficiency, unspecified; Z79.899 Other long term (current) drug therapy; E11.9 Type 2 diabetes mellitus without complications; E78.2 Mixed hyperlipidemia; Z12.5 Encounter for screening for malignant neoplasm of prostate; I25.10 Atherosclerotic heart disease of native coronary artery without angina pectoris; I50.9 Heart failure, unspecified
CPT/HCPCS: 36415; 71046; 80053; 80061; 81003; 82043; 82306; 83036; 83880; 84153; 85025; G0103

== ENCOUNTER 2025-09-11 14:48 | Outpatient (CLI) | payer MEDICARE, OTHER, SELFPAY ==
[2025-09-11 16:08] LABS: Hemoglobin A1C 5.9 % (<5.7)
[2025-09-11 16:12] LABS: Alanine Aminotransferase 35 U/L (6-50); Albumin Level 4.3 g/dL (3.5-5.1); Alkaline Phosphatase 66 U/L (38-126); Anion Gap 8 mmol/L (4-12); Aspartate Amino Transferase 39 U/L (17-59); Bilirubin,Total 0.8 mg/dL (0.2-1.3); Blood Urea Nitrogen 17 mg/dL (9-20); Calcium 9.1 mg/dL (8.4-10.2); Carbon Dioxide 27 mmol/L (22-30); Chloride 103 mmol/L (98-107); Cholesterol 109 mg/dL (0-200); Estimated Glomerular Filt Rate 54; Glucose 106 mg/dL (65-110); HDL Direct 31 mg/dL; Potassium 4.2 mmol/L (3.4-5.0); Sodium 138 mmol/L (137-145); Total Protein 7.2 g/dL (6.3-8.2); Triglycerides 290 mg/dL (<150)
[2025-09-11 16:30] LABS: Free T4 Free Thyroxine 1.24 ng/dL (0.78-2.19)
--- OUTSIDE RECORDS SUMMARY | 2025-09-11 16:36 | XMS_ITS | Clinical Summary ---
Author Organization [facility] Address [address] [address] Care Team Providers Care Extern Name Role Phone Unavailable Primary Care Provider Unavailabl e Source Comments [facility],non-owned Affiliates and Associated Physician Practices is amultiple site organization consisting of ambulatory clinics and hospital sitesin [place], [place], [place] and [place]. This disclosure is being madepursuant to the Care Everywhere program and may not contain all information available regarding this patient. 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
--- OUTSIDE RECORDS SUMMARY | 2025-09-11 16:36 | XMS_ITS | Clinical Summary ---
Author Organization [facility] [address] Address [address] [place] [address] Care Team Providers Care Machine Fastener Name Role Phone Ramon Means MD Primary Care Provider [phone] Allergies Active Allergy Reactions Criticality Noted Date Comments Niacin Rash Medium 08/11/2021 Medications atorvastatin (LIPITOR) 40 mg tablet 11/04/19 21 Active HYDROcodone-dior taminophen (NORCO) 10-325 mg per tablet Take by mouth every 6 (six) hours as needed 12/12/19 21 Active meloxicam (MOBIC) 15 mg tablet Take 1 tablet (15 mg total) by mouth daily 12/11/19 21 Active sildenafiL (VIAGRA) 100 mg tablet TAKE 1 TABLET BY MOUTH NEEDED FOR SEXUAL ACTIVITY 12/11/19 21 Active SUMAtriptan (IMITREX) 50 mg tablet TAKE 2 TABLETS BY MOUTH ONCE WITH FLUIDS AT ONSET OF HEADACHE MAY REPEAT AFTER 2 HOURS IF HEADACHE RETURNS NOT TO EXCEED 200MG IN 24 HOURS 10/07/20 20 Active tiZANidine (ZANAFLEX) 4 mg tablet TAKE 1 TABLET BY MOUTH THREE TIMES DAILY NEEDED FOR MUSCLE SPASM 12/11/19 21 Active zolpidem (AMBIEN) 10 mg tablet TAKE 1 TABLET BY MOUTH AT BEDTIME NEEDED FOR SLEEP 12/11/19 21 Active Nucynta tablet TAKE 1 TABLET BY MOUTH ONCE DAILY AT BEDTIME NEEDED 12/12/19 21 Active metFORMIN (GLUCOPHAGE) 1,000 mg tablet Take 1 tablet (1,000 mg total) by mouth 2 (two) times a day 06/30/20 22 Active folic acid (FOLVITE) 1 mg tablet Take 1 tablet (1,000 mcg total) by mouth daily 08/04/20 22 Active magnesium oxide (MAG-OX) 400 mg (241.3 mg elemental magnesium) tabletIndicatio ns:NSVT (nonsustained ventricular tachycardia) ([facility]) Take 1 tablet by mouth once daily 90 tablet 07/10/20 24 Active nitroglycerin (NITROSTAT) 0.[address] 1 tablet (0.4 mg total) under the tongue every 5 (five) minutes as needed for chest pain May repeat dose q 5 min, up to 3 doses total 30 tablet 2 10/30/19 25 026 Active amLODIPine (NORVASC) 10 mg tablet Take 1 tablet by mouth once daily 90 tablet 1 05/25/20 25 Active metoprolol XL (TOPROL-XL) 100 mg 24 hr tablet Take 1 tablet by mouth once daily 90 tablet 1 07/23/20 25 Active sacubitriL-vals nicki (ENTRESTO) 49-51 mg tablet Take 1 tablet by mouth twice daily 180 tablet 1 08/23/20 25 Active Entresto 49-51 mg tablet Take 1 tablet by mouth twice daily 180 tablet 04/23/20 25 025 Discontinued Active Problems Problem Noted Date Diagnosed Date [...] on file Legal Sex Male 2:42 AM ICER HAND Gender Identity Not on file Sexual Orientation Not on file Last Filed Vital Signs Vital Sign Reading Time Taken Comments Blood Pressure 128/78 02/13/2025 12:52 PM CDT Pulse 64 02/13/2025 12:52 PM CDT Temperature 36.4 C (97.5 F) 12/19/2020 3:00 PM ICER HAND Respiratory Rate 16 09/22/2022 11:43 AM ICER HAND Oxygen Saturation 96% 02/13/2025 12:52 PM CDT Inhaled Oxygen Concentration - - Weight 129.3 kg (285 lb) 02/13/2025 12:52 PM CDT Height 182.9 cm (6') 02/13/2025 12:52 PM CDT Body Mass Index 38.65 02/13/2025 12:52 PM CDT Plan of Treatment Health Maintenance Due Date [...] 02/01/2025 Well Visit 65+ 02/01/2025 Influenza Vaccine (#1) 2025 8, 06/16/2017, 08/29/2016, Additional history exists Lipid Panel 02/13/2026 02/13/2025, 1011/2023, 07/28/2023, Additional history exists DTaP/Tdap/Td Vaccine (2 - Td or Tdap) 03/31/2026 03/31/2016 Hepatitis B Screening Completed 03/31/2016 , 08/17/2005, 09/10/2003, Additional history exists Medical Devices Implanted Type Area Environmental Research Scientist Device Identifier Shelf Expiration Date Model / Serial / Lot Lumbar Spine Fusion Instrumentation Spine Lumbar Hernia Mesh Abdomen Procedures Procedure Name Priority Date/Time Associated Diagnosis Comments POCT LIPID PANEL Routine 02/13/2025 1:2 9 PM CDT Need for lipid screening EGFR Routine 09/22/2022 12:57 PM ICER HAND NSVT (nonsustained ventricular tachycardia) (HCC) from Last [...] Final Result * eGFR (09/22/2022 12:57 PM ICER HAND) eGFR 88 mL/min/1. 73 m2 SERGE GALICIA [...] was last reviewed 2021. Testing performed by: [facility], [address], [place] [address] Blood 09/22/2022 12:5 7 PM ICER HAND 09/22/2022 12:57 PM ICER HAND Devin Biswas MD LAB BLOOD ORDERABLES F inal Result [facility] [address] Department [place] [address] from Last 3 Months or Most Recently Relevant to Health Maintenance Insurance MEDICARE [facility] MEDICARE [employer] [place] MEDICARE [employer] [place] Care Teams Machine Fastener Relationship Specialty Start Date End Date Ramon Means MD PCP - General Internal Medicine 11/19/20
[2025-09-11 16:47] LABS: Thyroid Stimulating Hormone 1.850 uIU/mL (0.465-4.680)
== END 2025-09-11 14:49 | disposition home or self-care (01) ==
PROVIDERS: PCP Internal Medicine; Visit Provider Internal Medicine
DX: Z79.899 Other long term (current) drug therapy (principal); Z13.29 Encounter for screening for other suspected endocrine disorder; I10 Essential (primary) hypertension; E78.2 Mixed hyperlipidemia; E11.9 Type 2 diabetes mellitus without complications; E55.9 Vitamin D deficiency, unspecified
CPT/HCPCS: 36415; 80053; 80061; 82306; 83036; 84439; 84443

== ENCOUNTER 2025-10-04 11:25 | Outpatient (CLI) | payer MEDICARE, OTHER, SELFPAY ==
--- NOTE | ~2025-10-04 | US_ITS ---
EXAMINATION: US abdomen complete, 10/04/2025 11:29 EXECUTIVE VICE PRESIDENT OF SALES HISTORY: R10.33 - Periumbilical pain COMPARISON: None Technique: Phillip-scale and color Doppler images were obtained. Findings: LIVER: Moderate increased echogenicity of the liver. . GALLBLADDER/BILIARY: Postcholecystectomy. CBD 4 mm. [place] sign negative. PANCREAS: Unremarkable. SPLEEN: Unremarkable, no splenomegaly. KIDNEYS: Right Kidney: Right kidney 12.8 x 6 x 5.6 cm, normal. Left Kidney: Left kidney 13.2 x 7.2 x 6.3 cm, normal. AORTA: Normal caliber aorta. IVC: Unremarkable. FREE FLUID: None. Impression: Mild hepatic steatosis versus hepatocellular disease Reviewed, dictated and finalized at location P. UTIVE VICE PRESIDENT OF SALES Impression: Mild hepatic steatosis versus hepatocellular disease
== END 2025-10-04 11:26 | disposition home or self-care (01) ==
LOC: MICIMG 11:26
PROVIDERS: PCP Internal Medicine; Visit Provider Internal Medicine
DX: R10.33 Periumbilical pain (principal); R11.0 Nausea; R68.81 Early satiety; R63.4 Abnormal weight loss; K76.0 Fatty (change of) liver, not elsewhere classified
CPT/HCPCS: 76700

== ENCOUNTER 2025-10-09 08:59 | Outpatient (CLI) | payer MEDICARE, OTHER, SELFPAY ==
--- NOTE | ~2025-10-09 | XR_ITS ---
EXAMINATION: XR UGIAC wo kub DATE: 10/09/2025 10:01 INDICATION: Periumbilical pain TECHNIQUE: The patient drank thick barium, gas-producing crystals, and thin barium. A total of 626 fluoroscopic images of the esophagus, stomach, and proximal small bowel were obtained. Fluoroscopy exposure time was 1.4 minutes. Total DAP was 19.4 Gycm^2. COMPARISON: None. FINDINGS: The esophagus is normal without mass or stricture. Esophageal motility is normal. Small sliding-type hiatal hernia with gastroesophageal junction approximately 2-3 cm above level of the diaphragm. There was no gastroesophageal reflux with provocative maneuvers. The stomach and proximal small bowel are is otherwise normal. Cholecystectomy clips in right upper quadrant. IMPRESSION: 1. Small sliding-type hiatal hernia. No evident gastroesophageal reflux with provocative maneuvers. Reviewed, dictated and finalized at location A. BUILDER IMPRESSION: 1. Small sliding-type hiatal hernia. No evident gastroesophageal reflux with pr ovocative maneuvers.
--- OUTSIDE RECORDS SUMMARY | 2025-10-09 09:16 | XMS_ITS | Clinical Summary ---
Author Organization [facility] Address [address] [place] [address] Care Team Providers Care Alum Plant Supervisor Name Role Phone Unavailable Primary Care Provider Unavailabl e Source Comments [facility],non-owned Affiliates and Associated Physician Practices is amultiple site organization consisting of ambulatory clinics and hospital sitesin [place], [place], [place] and [place]. This disclosure is being madepursuant to the Care Everywhere program and may not contain all information available regarding this patient. 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
--- OUTSIDE RECORDS SUMMARY | 2025-10-09 09:16 | XMS_ITS | Clinical Summary ---
Author Organization [facility] Address [address] [place] [address] Care Team Providers Care Trade Clerk Name Role Phone Unavailable Primary Care Provider Unavailabl e Social History Tobacco Use Types Packs/Day Years Used Date Smoking Tobacco: Never Assessed Sex and Gender Information Value Date Recorded Sex Assigned at Not on file Legal Sex Male 1:26 PM EDT Gender Identity Not on file Sexual Orientation Not on file Plan of Treatment Not on file Medical Devices Not on file Insurance MEDICARE
--- OUTSIDE RECORDS SUMMARY | 2025-10-09 09:16 | XMS_ITS | Clinical Summary ---
Author Organization [facility] [address] Address [address] [place] [address] Care Team Providers Care Retail Coordinator Name Role Phone Ramon Means MD Primary Care Provider [phone] Allergies Active Allergy Reactions Criticality Noted Date [...] elemental magnesium) tabletIndicatio ns:NSVT (nonsustained ventricular tachycardia) ([facility]) Take 1 tablet by mouth once daily 90 tablet 07/10/20 24 Active nitroglycerin (NITROSTAT) 0.[address] 1 tablet (0.4 mg total) under the tongue every 5 (five) minutes as needed for chest pain May repeat dose q 5 min, up to 3 doses total 30 tablet 2 10/30/19 25 026 Active metoprolol XL (TOPROL-XL) 100 mg 24 hr tablet Take 1 tablet by mouth once daily 90 tablet 1 07/23/20 25 Active sacubitriL-vals nicki (ENTRESTO) 49-51 mg tablet Take 1 tablet by mouth twice daily 180 tablet 1 08/23/20 25 Active amLODIPine (NORVASC) 10 mg tablet Take 1 tablet by mouth once daily 90 tablet 09/28/20 25 Active amLODIPine (NORVASC) 10 mg tablet Take 1 tablet by mouth once daily 90 tablet 1 05/25/20 25 025 Discontinued Active Problems Problem Noted [...] on file 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 Gender Identity Not on file Sexual Orientation Not on file Last Filed Vital Signs Vital Sign Reading Time Taken Comments Blood Pressure 128/78 02/13/2025 12:52 PM CDT Pulse 64 02/13/2025 12:52 PM CDT Temperature 36.4 C (97.5 F) 12/19/2020 3:00 PM TERRAZZO TILE MAKER Respiratory Rate 16 09/22/2022 11:43 AM TERRAZZO TILE MAKER Oxygen Saturation 96% 02/13/2025 12:52 PM CDT [...] history exists Medical Devices Implanted Type Area Composition Molder Device Identifier Shelf Expiration Date Model / Serial / Lot Lumbar Spine Fusion Instrumentation Spine Lumbar Hernia Mesh Abdomen Procedures Procedure Name Priority Date/Time Associated Diagnosis Comments POCT LIPID PANEL Routine 02/13/2025 1:29 PM CDT Need for lipid screening EGFR Routine 09/22/2022 12:57 PM TERRAZZO TILE MAKER NSVT (nonsustained ventricular tachycardia) (HCC) from Last [...] Final Result * eGFR (09/22/2022 12:57 PM TERRAZZO TILE MAKER) eGFR 88 mL/min/1. 73 m2 SERGE GALICIA [...] was last reviewed 2021. Testing performed by: [facility], [address], [place] [address] Blood 09/22/2022 12:5 7 PM TERRAZZO TILE MAKER 09/22/2022 12:57 PM TERRAZZO TILE MAKER Devin Biswas MD LAB BLOOD ORDERABLES F inal Result [facility] [address] Department [place] [address] from Last 3 Months or Most Recently Relevant to Health Maintenance Insurance MEDICARE [facility] MEDICARE [employer] [place] MEDICARE [employer] [place] Care Teams Retail Coordinator Relationship Specialty Start Date End Date Ramon Means MD PCP - General Internal Medicine 11/19/20
== END 2025-10-09 09:00 | disposition home or self-care (01) ==
PROVIDERS: PCP Internal Medicine; Visit Provider Internal Medicine
DX: R10.33 Periumbilical pain (principal); K44.9 Diaphragmatic hernia without obstruction or gangrene
CPT/HCPCS: 74246